=== PATIENT | female | born 1960 | race Caucasian/White ===

== ENCOUNTER 2021-12-05 00:23 | Day surgery (SDC) | payer BC, SELFPAY ==
[2021-11-17 11:56] VITALS: BMI 34.7
[2021-12-05 09:55] VITALS: BP 172/99; PULSE 104; RESP 18; TEMP 36.6; O2SAT 99; BMI 33.6
--- NOTE | 2021-12-05 09:57 | WPDGICN ---
Assessment and Plan Assessment and plan (1) Positive colorectal cancer screening using Cologuard test: Code(s): R19.5 - Other fecal abnormalities Status: Acute Assessment and Plan: Patient found to have positive Cologuard test suggest higher risk of colon polyps. Plan is for colonoscopy which will be performed today. Further recommendations will be given after endoscopy. GI Consult Note Consult date/time: 12/05/21 09:57 HPI: Neva Nguyễn is a 61 year old female Presents for screening colonoscopy. Patient recently found to have positive Cologuard test. She states that her weight appetite and bowel movements are normal. She denies abdominal pain. She has had no bleeding. Family history is noncontributory. Neoplasia screening colonoscopy will be performed today. Review of Systems Review of Systems: All systems reviewed & are unremarkable except as noted in HPI and below PMFSH Past Medical History Medical History Diabetes Onset 04/2014 History of gastroesophageal reflux (GERD) History of hypertension Hx of cyst of breast Hx of diabetic neuropathy 05/2015 Hx of osteoporosis 01/2012 IDDM (insulin dependent diabetes mellitus) BRAEDEN (obstructive sleep apnea) Surgical History Surgical History History of tonsillectomy (~1963) History of tubal ligation 1984 Hx of removal of cyst (~1997) breast Family History Family History Mother Hypertension Family history of hemochromatosis Father Hypertension Family history of gastrointestinal disorder Family history of diabetes mellitus in first degree relative Sibling Family history of malignant neoplasm of cervix Social History Social History Smoking status: Never smoker Second hand tobacco smoke exposure: No Smoking end date: 12/02/78 Alcohol intake: never Substance use: never Substance use type: does not use Living arrangements: with family Spiritual care concerns: No Meds Home Medications and Allergies Home Medications Medication Instructions Recorded Confirmed Type blood sugar diagnostic #300 strip 10/25/20 09/26/21 Rx lancets 33 gauge #300 ea 10/25/20 09/26/21 Rx fenofibrate 160 mg tablet 160 mg PO DAILY #90 tablet 09/12/21 11/17/21 Rx empagliflozin 25 mg-metformin ER 1 tablet PO DAILY #90 tablet 09/26/21 11/17/21 Rx 1,000 mg tablet,extended release 24hr omeprazole 40 mg capsule,delayed 40 mg PO DAILY #90 cap 09/26/21 11/17/21 Rx release simvastatin 10 mg tablet 10 mg PO DAILY #90 tablet 09/26/21 11/17/21 Rx insulin glargine 100 unit/mL (3 See Rx Instructions .ROUTE 11/08/21 11/17/21 Rx mL) subcutaneous pen .COMPLEX #90 ml pen needle, diabetic 32 gauge x #100 each 11/08/21 Rx / amlodipine 5 mg tablet 5 mg PO DAILY #90 tablet 12/04/21 Rx gabapentin 300 mg capsule 300 mg PO TID #270 cap 12/04/21 12/05/21 Rx lisinopril 10 mg tablet 10 mg PO DAILY #90 tablet 12/04/21 Rx metoprolol succinate 200 mg 200 mg PO DAILY #90 tablet 12/04/21 Rx tablet,extended release 24 hr raloxifene 60 mg tablet 60 mg PO DAILY #90 tablet 12/04/21 Rx Allergies Allergy/AdvReac Type Severity Reaction Status Date / Time No Known Allergies Allergy Unknown Verified 11/17/21 11:54 Vital Signs Vital Signs - 24 hr 12/05/21 09:55 Temperature 97.8 F Pulse Rate 104 H Respiratory Rate 18 Blood Pressure 172/99 H Pulse Oximetry 99 Exam Narrative: Physical exam reveals patient to be alert. Vital signs stable. HEENT exam is unremarkable. Patient is anicteric. Lungs are clear to auscultation and percussion. Heart is without murmur or extra sounds. Abdominal exam bowel sounds are present soft nontender with no hepatosplenomegaly. Digital external rectal exam is normal.
[2021-12-05] MEDS: LACTATED RINGERS 1,000 ML 150 ML IV CONT (10:05)
--- NOTE | 2021-12-05 10:10 | WPDANESEPPF ---
Anes - Initial Pre Proc Eval Procedure: Operation Date: 12/05/21 11:00 Proposed Procedures p Colonoscopy - Charles Ortiz MD Date/Time: 12/05/21 10:10 Surgeon: Charles Ortiz MD Pre Op Diagnosis: positive cologuard Patient Data Age: 61 Gender: F Height: 1.57 m Weight: 83.5 kg Last Vital Signs Temp 97.8 F 12/05/21 09:55 Pulse 104 H 12/05/21 09:55 Resp 18 12/05/21 09:55 BP 172/99 H 12/05/21 09:55 Pulse Ox 99 12/05/21 09:55 Allergies Allergy/AdvReac Type Severity Reaction Status Date / Time No Known Allergies Allergy Unknown Verified 11/17/21 11:54 Home Medications Medication Instructions Recorded Confirmed Type blood sugar diagnostic #300 strip 10/25/20 09/26/21 Rx lancets 33 gauge #300 ea 10/25/20 09/26/21 Rx fenofibrate 160 mg tablet 160 mg PO DAILY #90 tablet 09/12/21 11/17/21 Rx empagliflozin 25 mg-metformin ER 1 tablet PO DAILY #90 tablet 09/26/21 11/17/21 Rx 1,000 mg tablet,extended release 24hr omeprazole 40 mg capsule,delayed 40 mg PO DAILY #90 cap 09/26/21 11/17/21 Rx release simvastatin 10 mg tablet 10 mg PO DAILY #90 tablet 09/26/21 11/17/21 Rx insulin glargine 100 unit/mL (3 See Rx Instructions .ROUTE 11/08/21 11/17/21 Rx mL) subcutaneous pen .COMPLEX #90 ml pen needle, diabetic 32 gauge x #100 each 11/08/21 Rx 5/32 amlodipine 5 mg tablet 5 mg PO DAILY #90 tablet 12/04/21 Rx gabapentin 300 mg capsule 300 mg PO TID #270 cap 12/04/21 12/05/21 Rx lisinopril 10 mg tablet 10 mg PO DAILY #90 tablet 12/04/21 Rx metoprolol succinate 200 mg 200 mg PO DAILY #90 tablet 12/04/21 Rx tablet,extended release 24 hr raloxifene 60 mg tablet 60 mg PO DAILY #90 tablet 12/04/21 Rx Patient hx anesthesia problems: none Family hx anesthesia problems: none Results Review: All pre-operative results and documents have been reviewed as part of the pre-operative evaluation. [facility] Past Medical History Medical History Diabetes Onset 04/2014 History of gastroesophageal reflux (GERD) History of hypertension Hx of cyst of breast Hx of diabetic neuropathy 05/2015 Hx of osteoporosis 01/2012 IDDM (insulin dependent diabetes mellitus) BRAEDEN (obstructive sleep apnea) Surgical History Surgical History History of tonsillectomy (~1963) History of tubal ligation 1984 Hx of removal of cyst (~1997) breast Family History Family History Mother Hypertension Family history of hemochromatosis Father Hypertension Family history of gastrointestinal disorder Family history of diabetes mellitus in first degree relative Sibling Family history of malignant neoplasm of cervix Social History Social History Smoking status: Never smoker Second hand tobacco smoke exposure: No Smoking end date: 12/02/78 Alcohol intake: never Substance use: never Substance use type: does not use Living arrangements: with family Spiritual care concerns: No Anes - Eval Final PreProcedure Day of Procedure 12/05/21 10:10 Patient weight: obese Heart: regular rate and rhythm Lungs: clear to auscultation Airway: Mallampati scale class III Neurological: alert and oriented Last oral intake: >/= 8 hours ASA classification: III Emergent: no Anesthetic plan: proceed Anesthesia type and monitoring: general GIVS and standard monitoring Results Review: All pre-operative results and documents have been reviewed as part of the pre-operative evaluation. Informed Consent: The patient's anesthetic plan and its attendant risks and benefits were discussed with the patient/family/POA. Questions were solicited and answers provided to the satisfaction of the patient/family/POA.
[2021-12-05 10:21] LABS: Glucose Point of Care 139 mg/dl (65-105)
[2021-12-05 11:00] VITALS: BP 129/76; PULSE 111; RESP 25; O2SAT 98
[2021-12-05 11:10] VITALS: BP 150/90; PULSE 96; RESP 19; O2SAT 99
[2021-12-05 11:20] VITALS: BP 159/99; PULSE 83; RESP 17; O2SAT 100
[2021-12-05 11:26] LABS: Glucose Point of Care 109 mg/dl (65-105)
== END 2021-12-05 11:20 | disposition home or self-care (01) ==
PROVIDERS: PCP Family Medicine; Visit Provider Internal Medicine Gastroenterology
PROC: 0DJD8ZZ Inspection of Lower Intestinal Tract, Via Natural or Artificial Opening Endoscopic (ICD-10-PCS; CPT 45378; principal; 2021-12-05 11:00)
DX: R19.5 Other fecal abnormalities (principal); K64.8 Other hemorrhoids; K63.5 Polyp of colon; D12.2 Benign neoplasm of ascending colon; K62.1 Rectal polyp; Z79.4 Long term (current) use of insulin; E11.9 Type 2 diabetes mellitus without complications; I10 Essential (primary) hypertension; M81.0 Age-related osteoporosis without current pathological fracture; G47.33 Obstructive sleep apnea (adult) (pediatric); E11.40 Type 2 diabetes mellitus with diabetic neuropathy, unspecified; E66.9 Obesity, unspecified; Z68.33 Body mass index [BMI] 33.0-33.9, adult
CPT/HCPCS: 45385; 45381; 82948; 88305; J2704; J7120

== ENCOUNTER 2022-04-17 16:14 | Observation (INO) | payer BC, SELFPAY ==
--- NOTE | ~2022-04-17 | CT_ITS ---
EXAMINATION: CT abdomen pelvis wo con DATE: 04/17/2022 22:26 INDICATION: upper ABD pain, N/V/D TECHNIQUE: Computed tomography (CT) of the abdomen and pelvis was performed without intravenous contr ast. Automated exposure control and iterative reconstruction technique were employed. The dose-length product was 944.92 mGy-cm. COMPARISON: 05/19/2018. FINDINGS: Lower thorax: Mild coronary artery calcification. Liver: Normal. Biliary/Gallbladder: Gallbladder is normal. No bile duct dilation. Pancreas: No mass or duct dilation. Spleen: Normal. Adrenals:No mass. Kidneys: Nonobstructive right and inferior pole calcification. Right inferior pole simple cyst. GI tract: No small or large bowel dilation. Normal appendix. Mesentery/Peritoneum: No ascites, mass, or free air. Retroperitoneum: No mass. Atherosclerotic calcifications. Pelvis: Pelvic organs are within normal limits. Soft Tissues: Soft tissues and body wall unremarkable. Bones: No acute osseous finding. IMPRESSION: No acute abdominopelvic process. Reviewed, dictated and finalized at location K.
--- NOTE | ~2022-04-17 | XR_ITS ---
EXAMINATION: XR chest 2V 04/17/2022 16:38 INDICATION: Congestion, shortness of breath and cough PROCEDURE: 2 view chest COMPARISON: Comparison to multiple prior studies sequentially, with oldest reviewed study dated 09/02. FINDINGS: The lungs are clear. The cardiomediastinal silhouette is within normal limits. There are no pleural effusions. There is no pneumothorax suspected. IMPRESSION: 1: NO ACUTE CARDIOPULMONARY DISEASE. Reviewed, dictated and finalized at location A.
[2022-04-17 16:25] VITALS: BP 147/91; PULSE 70; RESP 18; TEMP 36.5; O2SAT 98
[2022-04-17 19:38] VITALS: BP 119/72; PULSE 75; RESP 22; O2SAT 98
--- NOTE | 2022-04-17 20:03 | ECG_ITS ---
Measurements Intervals [place] Rate: 68 P: 73 NV: 136 QRS: 23 QRSD: 90 T: 8 QT: 409 QTc: 438 Interpretive Statements SINUS RHYTHM NONSPECIFIC T-WAVE ABNORMALITY- INFERIOR LEADS BASELINE ARTIFACT- I, II, III, AVR, AVL BORDERLINE ECG Electronically Signed On 04-18-2022 6:28:10 CDT by Jan Thomas D.O.
--- NOTE | 2022-04-17 20:08 | ED.GENADULT ---
HPI - General Adult General Chief complaint: Shortness of Breath/Dyspnea <Radha Mcarthur PA-C - Last Filed: 04/18/22 00:15> Stated complaint: sob, chest congestion, nausea <REGINA Ramires Last Filed: 04/18/22 00:15> Time Seen by Provider: 04/17/22 19:41 <REGINA Ramires Last Filed: 04/18/22 00:15> Source: patient <REGINA Ramires Last Filed: 04/18/22 00:15> Mode of arrival: ambulatory <REGINA Ramires Last Filed: 04/18/22 00:15> Limitations: no limitations <REGINA Ramires Last Filed: 04/18/22 00:15> History of Present Illness HPI narrative: Patient is a 61-year-old female who presents the ED with multiple complaints. Patient states she began feeling unwell on . She reports having congestion, cough, nausea, vomiting, intermittent upper abdominal pain, foul smelling diarrhea, chills, anorexia, and subjective fever. No documented fever. No recent antibiotics, foreign travel, or bad food exposure that she is aware of. She also mentions having a yeast infection with red itchy inflammation in her vaginal region. No other urinary symptoms. She does have a history of diabetes and states her blood sugars have been slightly more elevated than usual since she has been sick. Blood sugar this morning was 137. No headache, runny nose, sore throat. No blood in her stool. Patient mentioned she had acute renal failure several years ago and was placed on dialysis. She is no longer receiving dialysis and does not follow with a pension consultant at this time. <REGINA Ramires Last Filed: 04/18/22 00:15> Related Data Home medications: Home Medications Medication Instructions Recorded Confirmed insulin glargine 100 unit/mL (3 80 unit SUBCUT DAILY ml 03/27/22 04/18/22 mL) subcutaneous pen simvastatin 10 mg tablet 10 mg PO DAILY tablet 03/27/22 04/18/22 <REGINA Ramires Last Filed: 04/18/22 00:15> Allergies/adverse reactions: Allergies Allergy/AdvReac Type Severity Reaction Status Date / Time No Known Allergies Allergy Unknown Verified 04/18/22 01:19 <Radha Mcarthur PA-C - Last Filed: 04/18/22 00:15> Review of Systems Review of Systems: CONSTITUTIONAL: Reports anorexia, chills, subjective fever. Denies sweats. ENT: Reports congestion. Denies rhinorrhea, sore throat. CARDIOVASCULAR: Denies chest pain, palpitations, or edema. RESPIRATORY: Reports cough. Denies dyspnea. GASTROINTESTINAL: Reports upper ABD pain, nausea, vomiting, diarrhea. Denies rectal bleeding. GENITOURINARY: Reports vaginal inflammation/irritation. Denies dysuria or hematuria. SKIN: Denies rash or itching. MUSCULOSKELETAL: Denies back pain. NEUROLOGIC: Denies headache, numbness, or weakness. <Radha Mcarthur PA-C - Last Filed: 04/18/22 00:15> All systems reviewed & are unremarkable except as noted in HPI and below <Radha Mcarthur PA-C - Last Filed: 04/18/22 00:15> [facility] Past Medical History Medical History: Medical History (Updated 04/17/22 @ 23:42 by Radha Mcarthur PA-C) History of acute renal failure History of gastroesophageal reflux (GERD) History of hypertension Hx of cyst of breast Hx of diabetic neuropathy 05/2015 Hx of osteoporosis 01/2012 IDDM (insulin dependent diabetes mellitus) BRAEDEN (obstructive sleep apnea) <Radha Mcarthur PA-C - Last Filed: 04/18/22 00:15> Surgical History Surgical History: Surgical History History of tonsillectomy (~1963) History of tubal ligation 1984 Hx of removal of cyst (~1997) breast <Radha Mcarthur PA-C - Last Filed: 04/18/22 00:15> Family History Family History: Family History Mother Hypertension Family history of hemochromatosis Father Hypertension Family history of gastrointestinal disorder Family history of diabetes mellitus in first degree relative Sibling Fami
[2022-04-17 20:24] LABS: Basophils Absolute Auto 0.1 K/mm3 (0.0-0.1); Basophils Percent Auto 0.4 % (0.2-1.2); Eosinophils Percent Auto 0.3 % (0-4.4); Hematocrit 52.2 % (37.0-47.0); Hemoglobin 16.7 g/dL (12.0-15.0); Immature Granulocyte Absolute 0.06 K/mm3 (0.00-0.031); Immature Granulocyte Percent A 0.4 % (0-0.5); Lymphocytes Absolute Auto 4.81 K/mm3 (0.9-3.2); Lymphocytes Percent Auto 35.2 % (18.3-44.2); Mean Corpuscular Hemoglobin 28.2 pg (26-34); Mean Corpuscular Volume 88.2 fl (80-100); Mean Platelet Volume 10.2 fl (7.4-10.4); Monocytes Absolute Auto 1.1 K/mm3 (0.1-0.6); Monocytes Percent Auto 7.7 % (2.6-8.5); Neutrophils Absolute Auto 7.7 K/mm3 (1.3-6.7); Platelet Count Result 367 k/mm3 (150-375); Red Blood Count 5.92 M/mm3 (4.2-5.4); White Blood Count 13.7 K/mm3 (4.5-10.0)
[2022-04-17] MEDS: SODIUM CHLORIDE 0.9% IV 1,000 ML 999 ML IV CONT ×3 (20:25→23:56)
[2022-04-17] MEDS: KETOROLAC 30 MG/ML VIAL (*BKC) IV PUSH (20:25)
[2022-04-17] MEDS: ONDANSETRON INJ 4 MG/2 ML VIAL IV PUSH (20:25)
[2022-04-17 20:34] LABS: Alanine Aminotransferase 27 U/L (6-35); Albumin Level 4.6 g/dL (3.5-5.1); Alkaline Phosphatase 83 U/L (38-126); Anion Gap 11 mmol/L (8-16); Aspartate Amino Transferase 41 U/L (14-36); Bilirubin,Total 0.6 mg/dL (0.2-1.3); Blood Urea Nitrogen 40 mg/dL (7-17); Calcium 9.5 mg/dL (8.4-10.2); Carbon Dioxide 22 mmol/L (22-30); Chloride 105 mmol/L (98-107); Estimated CRCL calculation 27 ml/min; Estimated Glomerular Filt Rate 25; Glucose 154 mg/dL (65-110); Potassium 3.5 mmol/L (3.4-5.0); Sodium 138 mmol/L (137-145)
[2022-04-17 20:50] VITALS: BP 124/63; PULSE 61; RESP 18; O2SAT 98
[2022-04-17 21:05] LABS: Influenza A QL RT-PCR Negative (Negative); Influenza B QL RT-PCR Negative (Negative); SARS-CoV-2 RNA PCR Negative
[2022-04-17 21:39] VITALS: BP 119/70; PULSE 66; RESP 18; O2SAT 98
[2022-04-17 22:25] LABS: Appearance Urine Clear (Clear); Bilirubin Urine 1+ (Negative); Blood Urine Negative (Negative); Color Urine Yellow (Yellow); Glucose Urine UA 3+ mg/dL (Negative); Ketones Urine Trace mg/dL (Negative); Leukocyte Esterase Ur Negative LEU/UL (Negative); Nitrate Urine Negative (Negative); Protein Urine 1+ mg/dL (Negative); Urobilinogen Urine 0.2 mg/dL (<2.0); pH Urine 5.5 (5.0-9.0)
[2022-04-17 22:27] VITALS: PULSE 65; RESP 18; O2SAT 97
[2022-04-17 22:29] VITALS: BP 95/74
[2022-04-17 22:29] LABS: Bacteria Urine Trace /hpf; Hyaline Casts Urine 15-19 /lpf; Mucus Urine Few /lpf; Squamous Epithelial Cell Urine Moderate /hpf (Few); WBC Urine 21-30 /hpf
[2022-04-17 22:41] LABS: Add Urine Microscopic? YES
[2022-04-17] MEDS: FLUCONAZOLE 150 MG TABLET PO (23:58)
[2022-04-18 00:12] LABS: Glucose Point of Care 120 mg/dl (65-105)
[2022-04-18 00:52] VITALS: BP 128/72; PULSE 72; RESP 16; O2SAT 98
--- NOTE | 2022-04-18 01:17 | ADMGEN ---
This patient, Neva Nguyễn, was admitted to [facility] Surg Room 302-01. Patient/family oriented to hospital policies and general routines including ID bracelet, bed and alarms, visiting hours, pain management, procedures, bathroom and other care routines, personal items, smoking policy, room service/diet, and visiting hours. Information on how to activate the Rapid Response Team has been discussed. Patient/Family are encouraged to report perceived risks to care and to ask questions if they do not understand what they are told or what they should do.
[2022-04-18 01:27] VITALS: BP 150/68; PULSE 77; RESP 18; TEMP 36.9; O2SAT 95
[2022-04-18 01:28] VITALS: BMI 35.2
[2022-04-18] MEDS: SODIUM CHLORIDE 0.9% IV 1,000 ML 100 ML IV CONT ×3 (01:30→22:45)
--- NOTE | 2022-04-18 03:24 | PCRCNOTE ---
Pt wears CPAP at home for BRAEDEN. When asked if she would like to use one while here, pt stated that she is probably going home today so doesn't need one at this time. Pt was advised to let her nurse know if she changes her mind or if she ends up staying longer and wishes to have one.
[2022-04-18 06:00] VITALS: BP 161/67; PULSE 62; RESP 18; TEMP 36.4; O2SAT 99
[2022-04-18 07:48] LABS: Glucose Point of Care 109 mg/dl (65-105)
[2022-04-18 08:16] LABS: Hematocrit 42.7 % (37.0-47.0); Hemoglobin 13.6 g/dL (12.0-15.0); Mean Corpuscular HGB Conc 31.9 g/dl (32-36); Mean Corpuscular Hemoglobin 28.5 pg (26-34); Mean Corpuscular Volume 89.3 fl (80-100); Mean Platelet Volume 9.9 fl (7.4-10.4); Platelet Count Result 237 k/mm3 (150-375); Red Blood Count 4.78 M/mm3 (4.2-5.4); Red Cell Distribution Width 13.6 % (11.5-14.5); White Blood Count 8.7 K/mm3 (4.5-10.0)
[2022-04-18 08:41] LABS: Anion Gap 7 mmol/L (8-16); Blood Urea Nitrogen 33 mg/dL (7-17); Calcium 7.8 mg/dL (8.4-10.2); Carbon Dioxide 23 mmol/L (22-30); Chloride 113 mmol/L (98-107); Estimated CRCL calculation 38 ml/min; Estimated Glomerular Filt Rate 38; Glucose 90 mg/dL (65-110); Potassium 3.2 mmol/L (3.4-5.0); Sodium 143 mmol/L (137-145)
[2022-04-18] MEDS: GABAPENTIN 300 MG CAPSULE PO ×3 (09:02→17:20)
[2022-04-18 09:03] VITALS: PULSE 72
[2022-04-18] MEDS: amLODIPine BESYLATE 5 MG TABLET PO (09:03)
[2022-04-18] MEDS: FENOFIBRATE 160 MG TABLET PO (09:03)
[2022-04-18] MEDS: METOPROLOL SUCCINATE EXT REL 100 MG TABCR 200 MG PO (09:03)
[2022-04-18] MEDS: lisinopriL 10 MG TABLET PO (09:03)
[2022-04-18] MEDS: PANTOPRAZOLE 40 MG TABLET PO ×2 (09:03→21:05)
[2022-04-18] MEDS: RALOXIFENE HCL (*CHEMO) 60 MG TABLET PO (09:03)
[2022-04-18] MEDS: SIMVASTATIN 10 MG TABLET PO (09:03)
[2022-04-18 11:24] LABS: Glucose Point of Care 113 mg/dl (65-105)
[2022-04-18 13:29] VITALS: BP 111/55; PULSE 68; RESP 18; TEMP 36.2; O2SAT 97
--- NOTE | 2022-04-18 13:57 | PM.IMHP ---
H&P: HPI History of Present Illness Date/Time: 04/18/22 13:57 Chief Complaint: Cough and congestion Narrative: Date of service: 04/18/2022 Neva Nguyễn is a 61-year-old female with a history of hypertension, untreated sleep apnea, type 2 diabetes mellitus, and remote history of acute kidney injury requiring temporary hemodialysis who presented to the emergency department on 04/17/2022 with several complaints and feeling generally unwell. She stated since 04/12 her and her have both been feeling sick. Her biggest complaint was sinus congestion and cough productive of olivares, thick mucus. She also had intermittent shortness of breath with activity. She had a few episodes of emesis and overall had no appetite and very poor p.o. intake. She endorsed fatigued and stated she was just feeling ?out of it. She had been feeling somewhat constipated and took a Dulcolax suppository and now is noting somewhat loose, foul-smelling stool. She denies diarrhea. She also developed yeast infection and stated she was ?itching like crazy. ? She had some improvement following Monistat suppository and now she only has a very minimal amount of itching that she believes has resolved after a 1 time dose of Diflucan in the ED. she denies dysuria or hematuria but does endorse recent increased urinary frequency. She reports she had 2 negative at home COVID tests. Denies fever or chills. She denies dizziness, lightheadedness, myalgias, arthralgias. Reports normal sense of smell and taste. Does endorse feeling slightly weak. This morning she was able to tolerate eating most of her breakfast. On presentation to the ED, she was found to have acute kidney injury and urinalysis was concerning for UTI, CXR showed cardiopulmonary disease, and CT of the abdomen/pelvis showed no acute abdominal pelvic process. She is being admitted to the hospitalist service for observation. Supervising physician for this history and physical is Dr. Meek Barone. Review of Systems Review of Systems: All systems reviewed & are unremarkable except as noted in HPI and below PMFSH Past Medical History Medical History (Updated 04/18/22 @ 14:19 by Casandra Fox PA-C) Essential (primary) hypertension Onset 07/03/17 History of acute renal failure 2014. Required temporary dialysis History of gastroesophageal reflux (GERD) History of hypertension Hx of cyst of breast Benign Hx of diabetic neuropathy 05/2015 Hx of osteoporosis 01/2012 IDDM (insulin dependent diabetes mellitus) BRAEDEN (obstructive sleep apnea) Untreated Surgical History Surgical History History of tonsillectomy (~1963) History of tubal ligation 1985 Hx of removal of cyst (~1997) breast Family History Family History Mother Hypertension Family history of hemochromatosis Father Hypertension Family history of gastrointestinal disorder Family history of diabetes mellitus in first degree relative Sibling Family history of malignant neoplasm of cervix Social History Social History (Updated 04/18/22 @ 14:10 by Casandra Fox PA-C) Social History: Ms. Nguyễn lives at home with her . She is independent in her daily activities. She works for [employer]. Her PCP is Dr. Bermudez. She designates her , Nikhil, as her surrogate decision maker and she would like to be a full code. Smoking packs per day: 0.25 Smoking cigarettes per day: 5.0 Years smoked: 5 Smoking pack-years: 1.25 Smoking status: Former smoker Second hand tobacco smoke exposure: No Alcohol intake: never Substance use: never Substance use type: does not use Spiritual care concerns: No Meds Home Medications and Allergies Home Medications Medication Instructions Recorded Confirmed Type blood sugar diagnostic #300 strip 10/25/20 04/18/22 Rx lancets 33 gauge #300 ea 10/25/20
[2022-04-18] MEDS: POTASSIUM CHLORIDE 20 MEQ TABLET PO (14:42)
[2022-04-18 16:07] LABS: Glucose Point of Care 118 mg/dl (65-105)
[2022-04-18] MEDS: guaiFENesin 12 HR 600 MG TABCR PO (21:05)
[2022-04-18] MEDS: INSULIN GLARGINE (*BKC) 100 UNITS/ML 40 UNITS SUB-Q (21:13)
[2022-04-18 21:23] LABS: Glucose Point of Care 138 mg/dl (65-105)
[2022-04-18 21:49] VITALS: BP 140/68; PULSE 58; RESP 18; TEMP 36.6; O2SAT 99
[2022-04-19] MEDS: guaiFENesin 12 HR 600 MG TABCR PO (05:49)
[2022-04-19 06:00] VITALS: BP 156/84; PULSE 62; RESP 14; TEMP 36.1; O2SAT 100
[2022-04-19 06:50] LABS: Hematocrit 43.4 % (37.0-47.0); Hemoglobin 13.4 g/dL (12.0-15.0); Mean Corpuscular HGB Conc 30.9 g/dl (32-36); Mean Corpuscular Hemoglobin 28.2 pg (26-34); Mean Corpuscular Volume 91.4 fl (80-100); Mean Platelet Volume 10.4 fl (7.4-10.4); Platelet Count Result 224 k/mm3 (150-375); Red Blood Count 4.75 M/mm3 (4.2-5.4); Red Cell Distribution Width 13.5 % (11.5-14.5); White Blood Count 7.7 K/mm3 (4.5-10.0)
[2022-04-19 07:11] LABS: Anion Gap 6 mmol/L (8-16); Blood Urea Nitrogen 16 mg/dL (7-17); Calcium 7.8 mg/dL (8.4-10.2); Carbon Dioxide 21 mmol/L (22-30); Chloride 112 mmol/L (98-107); Estimated CRCL calculation 58 ml/min; Estimated Glomerular Filt Rate > 60; Glucose 73 mg/dL (65-110); Magnesium 2.2 mg/dL (1.6-2.3); Potassium 3.3 mmol/L (3.4-5.0); Sodium 139 mmol/L (137-145)
[2022-04-19 07:33] LABS: Glucose Point of Care 69 mg/dl (65-105)
[2022-04-19] MEDS: GABAPENTIN 300 MG CAPSULE PO ×2 (08:48→12:41)
[2022-04-19 08:49] VITALS: PULSE 72
[2022-04-19] MEDS: METOPROLOL SUCCINATE EXT REL 100 MG TABCR 200 MG PO (08:49)
[2022-04-19] MEDS: FENOFIBRATE 160 MG TABLET PO (08:49)
[2022-04-19] MEDS: RALOXIFENE HCL (*CHEMO) 60 MG TABLET PO (08:49)
[2022-04-19] MEDS: SIMVASTATIN 10 MG TABLET PO (08:49)
[2022-04-19] MEDS: PANTOPRAZOLE 40 MG TABLET PO (08:50)
[2022-04-19] MEDS: amLODIPine BESYLATE 5 MG TABLET PO (08:50)
[2022-04-19] MEDS: POTASSIUM CHLORIDE 20 MEQ TABLET PO (11:01)
[2022-04-19 11:45] LABS: Glucose Point of Care 148 mg/dl (65-105)
--- NOTE | 2022-04-19 12:14 | PM.DS ---
DS: Admitting Diagnosis Discharge Date 04/19/2022 Admitting Diagnosis Acute kidney injury DS: Discharge Diagnosis Discharge Diagnosis (1) Acute kidney injury: Code(s): N17.9 - Acute kidney failure, unspecified Status: Acute Assessment and Plan: Likely prerenal secondary to volume depletion from decreased p.o. intake. Creatinine 2.0 at presentation Improved with rehydration back to baseline Creatinine 0.9 at time of discharge Patient maintaining adequate oral intake Lisinopril and metformin held during admission in light of BETH but resumed on discharge following resolution (2) Urinary tract infection: Qualifiers: Hematuria presence: with hematuria Urinary tract infection type: acute cystitis Qualified Code(s): N30.01 - Acute cystitis with hematuria Code(s): N39.0 - Urinary tract infection, site not specified Status: Ruled-out Assessment and Plan: Ruled out. Urinalysis abnormal on presentation. Patient did complain of urinary symptoms which may have been related to vaginal yeast infection. She was initiated on IV ceftriaxone which was discontinued following results of urine culture which revealed no growth. No further treatment required. (3) IDDM (insulin dependent diabetes mellitus): Code(s): E11.9 - Type 2 diabetes mellitus without complications; Z79.4 - shelter (current) use of insulin Status: Acute Assessment and Plan: A1c is 7.8. Manage during admission with Accu-Cheks, sliding scale insulin, hypoglycemic protocol. Home Lantus was decreased by 50% to 40 units qHS and patient had low a.m. fasting blood sugar of 69 following this dose. Patient reports episodes of hypoglycemia at home. Lantus decreased to 30 units qHS and she was instructed to monitor blood sugars at home 3 times per day. She will follow-up with her PCP in 1 week for glucose monitoring and insulin adjustment as needed. Home empagliflozin-metformin was held during admission but resumed on discharge. (4) Essential (primary) hypertension: Code(s): I10 - Essential (primary) hypertension Status: Acute Assessment and Plan: Blood pressure reviewed and remained stable. Lisinopril resumed. Continue metoprolol (5) Yeast infection: Code(s): B37.9 - Candidiasis, unspecified Status: Resolved Assessment and Plan: Symptoms resolved following Monistat suppository. Patient received 150 mg Diflucan 1 time dose on presentation (6) Hypokalemia: Code(s): E87.6 - Hypokalemia Status: Acute Assessment and Plan: Potassium slightly decreased secondary to poor oral intake. Potassium was monitored and replaced. Anticipate full resolution as patient's is now tolerating diet. DS: Summary Hospital Course Hospital Course: Date of admission: 04/17/2022 Date of discharge: 04/19/2022 Neva Nguyễn is a 61-year-old female with a history of hypertension, untreated sleep apnea, type 2 diabetes mellitus, and remote history of acute kidney injury requiring temporary hemodialysis who presented to the emergency department on 04/17/2022 with several complaints and feeling generally unwell. On presentation to the ED, she was found to have acute kidney injury and she was admitted to the hospitalist service for further evaluation and management. Please see above for further details. Her acute kidney injury resolved with fluid rehydration. She was feeling significantly improved and was eager for discharge home. Given her overall improvement, she was determined to no longer require inpatient care and was discharged in hemodynamically stable condition on 04/19/2022. She will follow-up with her PCP in 1 week for further monitoring. We discussed worrisome signs and symptoms for which to return and she was educated on her medications. All questions were answered and she was comfortable with discharge plans. Time Spent with Patient Time attest
== END 2022-04-19 13:00 | disposition home or self-care (01) ==
LOC: ANHED 23:50 → ANH3MEDSUR 04-18 00:33
PROVIDERS: Physician Assistant; Admitting Provider Internal Medicine; Emergency Provider General Practice; PCP Family Medicine; Visit Provider Internal Medicine
DX: N17.9 Acute kidney failure, unspecified (principal); R06.02 Shortness of breath; K21.9 Gastro-esophageal reflux disease without esophagitis; I10 Essential (primary) hypertension; E11.9 Type 2 diabetes mellitus without complications; Z79.4 Long term (current) use of insulin; G47.33 Obstructive sleep apnea (adult) (pediatric); B37.9 Candidiasis, unspecified; E87.6 Hypokalemia; R35.0 Frequency of micturition; Z20.822 Contact with and (suspected) exposure to COVID-19
CPT/HCPCS: 36415; 71046; 74176; 80048; 80053; 81001; 82948; 83735; 84484; 85025; 85027; 87086; 87502; 93005; 96361; 96365; 96375; 99285; A9270; C9803; G0378; J0696; J1650; J1815; J1885; J2405; J7030; U0003; U0005

== ENCOUNTER 2022-08-09 09:30 | Observation (INO) | payer BC, SELFPAY ==
[2022-08-09] VITALS (15 sets, daily range): BP systolic 130–211; BP diastolic 67–118; PULSE 88–124; RESP 14–25; TEMP 36.8–37.2; O2SAT 96–100; BMI 34.1
--- NOTE | ~2022-08-09 | CT_ITS ---
EXAMINATION: CT abdomen pelvis w con DATE: 08/09/2022 10:37 INDICATION: Nausea and vomiting. TECHNIQUE: Computed tomography (CT) of the abdomen and pelvis was performed with 100 mL Omnipaque 350 intravenous contrast. Automated exposure control and iterative reconstruction technique were employe d. The dose-length product was 936.98 mGy-cm. COMPARISON: CT abdomen and pelvis 04/17/2022 FINDINGS: The visualized portions of the lung bases demonstrate mild atelectasis. No pleural effusion . The heart size is normal. No pericardial effusion. There is diffuse hepatic steatosis. The gallblad anastasiya, spleen, pancreas, and adrenal glands are normal. There are cysts in the kidneys measuring up to 13 mm on the right. There is a 2 mm stone in right kidney. There are no dilated loops of bowel. The a ppendix is normal. There are no pathologically enlarged lymph nodes. There is no free intraperitoneal fluid. There is mild lumbar spondylosis. IMPRESSION: 1. Diffuse hepatic steatosis. Reviewed, dictated and finalized at location A.
--- NOTE | 2022-08-09 09:47 | ED.NAVMDI ---
HPI - Nausea/Vomiting/Diarrhea General Chief complaint: Nausea/Vomiting/Diarrhea Stated complaint: I'm dehydrated Time Seen by Provider: 08/09/22 09:34 History of Present Illness HPI Narrative: 62-year-old female history of diabetes and hypertension presents emergency room stating I am dehydrated . Patient states that she has been experiencing nausea and vomiting since yesterday. It is accompanied with abdominal cramping. Reports the cramping is worse prior to the vomiting. Reports multiple episodes of nonbilious nonbloody vomiting. No diarrhea. Denies dysuria. Denies fever. Related Data Home Medications Medication Instructions Recorded Confirmed simvastatin 10 mg tablet 10 mg PO DAILY 03/27/22 08/02/22 insulin glargine 100 unit/mL (3 50 unit subcut DAILY 05/29/22 08/02/22 mL) subcutaneous pen (Lantus Solostar U-100 Insulin) Allergies Allergy/AdvReac Type Severity Reaction Status Date / Time No Known Allergies Allergy Unknown Verified 08/09/22 09:38 Review of Systems Review of Systems: CONSTITUTIONAL: Denies fever, chills, or sweats. EYES: Denies visual changes, redness, or discharge. ENT: Denies rhinorrhea, congestion, sore throat, or otalgia. CARDIOVASCULAR: Denies chest pain, palpitations, or edema. RESPIRATORY: Denies cough or dyspnea. GASTROINTESTINAL: Reports nausea and vomiting GENITOURINARY: Denies dysuria or hematuria. SKIN: Denies rash or itching. MUSCULOSKELETAL: Denies back pain, joint pain, or myalgia. NEUROLOGIC: Denies headache, numbness, dizziness, or weakness. PSYCHIATRIC: Denies anxiety or depression. [facility] Past Medical History Medical History Essential (primary) hypertension Onset 07/03/17 History of acute renal failure 2014. Required temporary dialysis History of gastroesophageal reflux (GERD) History of hypertension Hx of cyst of breast Benign Hx of diabetic neuropathy 05/2015 Hx of osteoporosis 01/2012 IDDM (insulin dependent diabetes mellitus) BRAEDEN (obstructive sleep apnea) Untreated Surgical History Surgical History History of tonsillectomy (~1963) History of tubal ligation 1985 Hx of removal of cyst (~1997) breast Family History Family History Mother Hypertension Family history of hemochromatosis Father Hypertension Family history of gastrointestinal disorder Family history of diabetes mellitus in first degree relative Sibling Family history of malignant neoplasm of cervix Social History Social History Social History: Ms. Nguyễn lives at home with her . She is independent in her daily activities. She works for [employer]. Her PCP is Dr. Bermudez. She designates her , Nikhil, as her surrogate decision maker and she would like to be a full code. Smoking packs per day: 0.25 Smoking cigarettes per day: 5.0 Years smoked: 5 Smoking pack-years: 1.25 Smoking status: Never smoker Second hand tobacco smoke exposure: No Alcohol intake: never Substance use: never Substance use type: does not use Spiritual care concerns: No Exam Narrative: GENERAL: Well-appearing, well-nourished, no physical limitations, and in no acute distress. HEAD: Normocephalic, atraumatic. EYES: Conjunctivae normal, PERRLA and EOMI. ENT: External nose normal, Nares clear, no rhinorrhea or epistaxis. Mucous membranes dry. NECK: Supple. No carotid bruits or JVD CHEST: Clear to auscultation. No respiratory distress. No wheezes rales or rhonchi. No tenderness. HEART: Regular rate and rhythm. No murmur heard. Normal peripheral pulses. ABDOMEN: Soft, nontender, nondistended, normal active bowel sounds. EXTREMITIES: Normal range of motion. No edema. No clubbing or cyanosis SKIN: Warm, dry, no rash. No noted wounds NEURO: No focal deficit
[2022-08-09] MEDS: ONDANSETRON INJ 4 MG/2 ML VIAL IV PUSH ×3 (09:49→17:24)
[2022-08-09] MEDS: SODIUM CHLORIDE 0.9% IV 1,000 ML 999 ML IV CONT ×2 (09:49→10:41)
[2022-08-09 09:58] LABS: Basophils Absolute Auto 0.1 K/mm3 (0.0-0.1); Basophils Percent Auto 0.3 % (0.2-1.2); Hematocrit 52.8 % (37.0-47.0); Hemoglobin 17.2 g/dL (12.0-15.0); Immature Granulocyte Absolute 0.11 K/mm3 (0.00-0.031); Immature Granulocyte Percent A 0.5 % (0-0.5); Lymphocytes Absolute Auto 1.69 K/mm3 (0.9-3.2); Lymphocytes Percent Auto 7.4 % (18.3-44.2); Mean Corpuscular HGB Conc 32.6 g/dl (32-36); Mean Corpuscular Hemoglobin 28.8 pg (26-34); Mean Corpuscular Volume 88.4 fl (80-100); Mean Platelet Volume 10.7 fl (7.4-10.4); Monocytes Absolute Auto 0.7 K/mm3 (0.1-0.6); Monocytes Percent Auto 2.9 % (2.6-8.5); Neutrophils Absolute Auto 20.3 K/mm3 (1.3-6.7); Neutrophils Percent Auto 88.9 % (45.5-73.1); Platelet Count Result 429 k/mm3 (150-375); Red Blood Count 5.97 M/mm3 (4.2-5.4); Red Cell Distribution Width 14.1 % (11.5-14.5); White Blood Count 22.8 K/mm3 (4.5-10.0)
[2022-08-09 10:08] LABS: Alanine Aminotransferase 31 U/L (6-35); Albumin Level 5.2 g/dL (3.5-5.1); Alkaline Phosphatase 97 U/L (38-126); Anion Gap 23 mmol/L (8-16); Aspartate Amino Transferase 37 U/L (14-36); Bilirubin,Total 0.8 mg/dL (0.2-1.3); Blood Urea Nitrogen 22 mg/dL (7-17); Calcium 10.4 mg/dL (8.4-10.2); Carbon Dioxide 12 mmol/L (22-30); Chloride 105 mmol/L (98-107); Estimated CRCL calculation 43 ml/min; Estimated Glomerular Filt Rate 45; Glucose 378 mg/dL (65-110); Potassium 3.8 mmol/L (3.4-5.0); Sodium 140 mmol/L (137-145)
[2022-08-09 10:43] LABS: Appearance Urine Clear (Clear); Bilirubin Urine 2+ (Negative); Blood Urine 2+ (Negative); Color Urine Yellow (Yellow); Glucose Urine UA 3+ mg/dL (Negative); Ketones Urine 4+ mg/dL (Negative); Leukocyte Esterase Ur Negative LEU/UL (Negative); Nitrate Urine Negative (Negative); Protein Urine 2+ mg/dL (Negative); Urobilinogen Urine 0.2 mg/dL (<2.0)
[2022-08-09 10:53] LABS: Add Urine Microscopic? YES
[2022-08-09 10:54] LABS: Squamous Epithelial Cell Urine Many /hpf (Few); Transitional Epi Cells Urine Rare /hpf
[2022-08-09 10:55] LABS: Bacteria Urine 1+ /hpf
[2022-08-09 11:15] LABS: Lactic Acid Reflex 4.4 mmol/L (0.7-2.0)
[2022-08-09 11:47] LABS: Alveolar/Arterial O2 Gradient 23.1 mmHg; Base Excess ABG -7.2 mEq/l (+/-2.0); Fractional Inspired Oxygen 21 %; HCO3 ABG 16.4 mEq/l (22.0-26.0); Oxygen Content ABG 21.3 %vol (16.0-22.0); Oxyhemoglobin 96.3 % THb (90.0-100.0); PCO2 ABG 28.9 mmHg (35.0-45.0); PO2 FiO2 Ratio Arterial Blood 4.38 %; Total Hemoglobin 15.7 g/dL (12.0-18.0); pH ABG 7.372 (7.350-7.450)
[2022-08-09 11:48] LABS: Device ROOM AIR; Modified Allen's Test Pass; Site Drawn RIGHT RADIAL
--- NOTE | 2022-08-09 13:02 | PM.IMHP ---
H&P: HPI History of Present Illness Date/Time: 08/09/22 13:02 Chief Complaint: Nausea vomiting diarrhea Narrative: This is a 62-year-old female patient who has a history of insulin-dependent diabetes and hypertension. The patient give level nausea vomiting since yesterday. The patient also developed abdominal cramping. 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 The patient has had multiple episodes of nonbilious nonbloody emesis today. She has not had any fever or any diarrhea. The patient's cramping is worse with vomiting. She also has lost her voice from vomiting so much. The patient stated that she has been taking her medication as prescribed. She also stated that she has never been in DKA. Her white count was 22.8 her H&H is 17.2 and 52.8. On her ABGs her pH was normal and her CO2 was 28.9. Her creatinine was 1.2 BUN 22 anion gap is 23. The patient was given 2 L of IV normal saline bolus. Her lactic was initially 4.4 and came down to 2.5. A1c was noted to be 7.7. Her blood sugar is 208 now. Patient's initial beta hydroxybutyrate acetoacetate was initially 3.9 and is now 2.73. Her anion gap came down from 23 and is now 16. Urine had 3+ glucose 2+ protein 4+ ketones and 2+ blood. She had many squamous cells which is a contaminant. The patient was given Zofran in the emergency room, and IV fluids. The patient is being admitted to ICU for DKA as observation on the date of service of 08/09/2022. Review of Systems Review of Systems: See HPI All systems reviewed & are unremarkable except as noted in HPI and below Constitutional: Constitutional: Reports as per HPI and Reports no additional constitutional complaints Eyes: Eyes: Reports as per HPI and Reports no additional eye complaints ENT: Reports system reviewed and no additional complaints, except as documented and Reports Normal hearing present Cardiovascular: Cardiovascular: Reports no additional cardiovascular complaints Respiratory: Respiratory: Reports no additional respiratory complaints and Reports no additional respiratory complaints Gastrointestinal: Gastrointestinal: Reports as per HPI and Reports no additional gastrointestinal complaints Musculoskeletal: Musculoskeletal: Reports no additional musculoskeletal complaints Integumentary/Breasts: Skin/Breast: Reports system reviewed and no additional complaints, except as docu and Reports as per HPI Neurologic: Reports system reviewed and no additional complaints, except as documented, Reports as per HPI and Reports Normal hearing present Psychiatric: Psychiatric: Reports no additional psychiatric complaints and Reports as per HPI Endocrine: Endocrine: Reports no additional endocrine complaints Hematologic/Lymphatic: Hematologic/Lymphatic: Reports no additional hematologic/lymphatic complaints Allergic/Immunologic: Allergic/Immunologic: Reports no additional allergic/immunologic complaints PMFSH Past Medical History Medical History Essential (primary) hypertension Onset 07/03/17 History of acute renal failure 2014. Required temporary dialysis History of gastroesophageal reflux (GERD) History of hypertension Hx of cyst of breast Benign Hx of diabetic neuropathy 05/2015 Hx of osteoporosis 01/2012 Hyperlipidemia IDDM (insulin dependent diabetes mellitus) BRAEDEN (obstructive sleep apnea) Untreated Surgical History Surgical History History of tonsillectomy (~1963) History of tubal ligation 1984 Hx of removal of cyst (~1997) breast Family History Family History Mother Hypertension Family history of hemochromatosis Father Hypertension Family history of gastrointestinal disorder Family history of diabetes mellitus in first degree relative Sibling Family history of malignant n
[2022-08-09] MEDS: FLUCONAZOLE 150 MG TABLET PO (13:32)
[2022-08-09] MEDS: SODIUM CHLORIDE 0.9% IV 1,000 ML 125 ML IV CONT (13:32)
[2022-08-09 13:36] LABS: Beta-Hydroxybutyrate/Acetoacetate 3.99 mmol/L (0.02-0.27)
[2022-08-09 14:02] LABS: Reflex Lactic Acid Yes or No Add Lactic
[2022-08-09 14:11] LABS: Anion Gap 17 mmol/L (8-16); Blood Urea Nitrogen 19 mg/dL (7-17); Calcium 9.3 mg/dL (8.4-10.2); Carbon Dioxide 19 mmol/L (22-30); Chloride 109 mmol/L (98-107); Estimated CRCL calculation 56 ml/min; Estimated Glomerular Filt Rate > 60; Glucose 218 mg/dL (65-110); Potassium 3.9 mmol/L (3.4-5.0); Sodium 145 mmol/L (137-145)
[2022-08-09 14:42] LABS: Lactic Acid 2.5 mmol/L (0.7-2.0)
[2022-08-09 14:43] LABS: Anion Gap 16 mmol/L (8-16); Blood Urea Nitrogen 18 mg/dL (7-17); Calcium 9.4 mg/dL (8.4-10.2); Carbon Dioxide 19 mmol/L (22-30); Chloride 110 mmol/L (98-107); Estimated CRCL calculation 56 ml/min; Estimated Glomerular Filt Rate > 60; Glucose 213 mg/dL (65-110); Magnesium 1.8 mg/dL (1.6-2.3); Phosphorus 1.9 mg/dL (2.5-4.5); Potassium 4.2 mmol/L (3.4-5.0); Sodium 145 mmol/L (137-145)
--- NOTE | 2022-08-09 14:47 | PC.NURSE ---
Evita called to clarify orders placed. VO to not given D50, BS <200 hold IVP 9units insulin, hold on Insulin drip until labs resulted or pt to ICU.
[2022-08-09 14:51] LABS: Beta-Hydroxybutyrate/Acetoacetate 2.73 mmol/L (0.02-0.27)
[2022-08-09 15:04] LABS: Hemoglobin A1C 7.7 % (<5.7)
[2022-08-09 15:17] LABS: Glucose Point of Care 208 mg/dl (65-105)
--- NOTE | 2022-08-09 15:44 | ADMGEN ---
This patient, Neva Nguyễn, was admitted to Intensive Care Unit-6. Patient/family oriented to hospital policies and general routines including ID bracelet, bed and alarms, visiting hours, pain management, procedures, bathroom and other care routines, personal items, smoking policy, room service/diet, and visiting hours. Information on how to activate the Rapid Response Team has been discussed. Patient/Family are encouraged to report perceived risks to care and to ask questions if they do not understand what they are told or what they should do.
[2022-08-09] MEDS: KCL 20 MEQ/D5/0.45% SOD CHL 1,000 ML 150 ML IV CONT ×2 (15:56→22:31)
[2022-08-09] MEDS: INSULIN HUMAN REGULAR (*BKC) 100 UNITS in SODIUM CHLORIDE 0.9% IV 99 ML IV CONT (15:57)
[2022-08-09 16:00] LABS: Glucose Point of Care 201 mg/dl (65-105)
[2022-08-09] MEDS: hydrALAZINE HCL 20 MG/ML VIAL 10 MG IV PUSH (16:12)
[2022-08-09 17:19] LABS: Glucose Point of Care 199 mg/dl (65-105)
[2022-08-09 18:07] LABS: Glucose Point of Care 196 mg/dl (65-105)
[2022-08-09] MEDS: METOPROLOL TARTRATE INJ 5 MG/5 ML VIAL IV PUSH ×2 (18:20→23:39)
[2022-08-09 18:30] LABS: Anion Gap 12 mmol/L (8-16); Blood Urea Nitrogen 17 mg/dL (7-17); Carbon Dioxide 15 mmol/L (22-30); Chloride 115 mmol/L (98-107); Estimated CRCL calculation 62 ml/min; Estimated Glomerular Filt Rate > 60; Glucose 182 mg/dL (65-110); Potassium 3.4 mmol/L (3.4-5.0); Sodium 142 mmol/L (137-145)
[2022-08-09] MEDS: METOCLOPRAMIDE HCL INJ 10 MG/2 ML VIAL 5 MG IV PUSH (18:48)
[2022-08-09 19:11] LABS: Glucose Point of Care 149 mg/dl (65-105)
[2022-08-09] MEDS: FAMOTIDINE 20 MG/2 ML VIAL IV PUSH (20:15)
[2022-08-09] MEDS: MICONAZOLE NITRATE 2% VAGINAL CREAM 45 GM TUBE 1 APPFUL VAGINAL (20:16)
[2022-08-09 20:25] LABS: Glucose Point of Care 141 mg/dl (65-105)
[2022-08-09 21:10] LABS: Glucose Point of Care 129 mg/dl (65-105)
[2022-08-09 22:11] LABS: Glucose Point of Care 128 mg/dl (65-105)
[2022-08-09 22:57] LABS: Anion Gap 14 mmol/L (8-16); Blood Urea Nitrogen 16 mg/dL (7-17); Calcium 8.7 mg/dL (8.4-10.2); Carbon Dioxide 20 mmol/L (22-30); Chloride 110 mmol/L (98-107); Estimated CRCL calculation 62 ml/min; Estimated Glomerular Filt Rate > 60; Glucose 123 mg/dL (65-110); Potassium 3.2 mmol/L (3.4-5.0); Sodium 144 mmol/L (137-145)
[2022-08-09] MEDS: KCL 20 MEQ/SW 100 ML 100 ML 50 MEQ IVPB (23:39)
[2022-08-09 23:49] LABS: Glucose Point of Care 156 mg/dl (65-105)
[2022-08-10] VITALS (12 sets, daily range): BP systolic 131–179; BP diastolic 64–90; PULSE 75–97; RESP 16–20; TEMP 36.7–36.9; O2SAT 96–99; BMI 34.4
[2022-08-10 00:20] LABS: Glucose Point of Care 150 mg/dl (65-105)
[2022-08-10 01:12] LABS: Glucose Point of Care 141 mg/dl (65-105)
[2022-08-10 01:53] LABS: SARS-CoV-2 RNA PCR Negative
[2022-08-10 02:02] LABS: Glucose Point of Care 119 mg/dl (65-105)
[2022-08-10] MEDS: hydrALAZINE HCL 20 MG/ML VIAL 10 MG IV PUSH (02:24)
[2022-08-10] MEDS: ONDANSETRON INJ 4 MG/2 ML VIAL IV PUSH ×2 (02:25→08:38)
[2022-08-10 02:56] LABS: Anion Gap 8 mmol/L (8-16); Blood Urea Nitrogen 16 mg/dL (7-17); Calcium 8.9 mg/dL (8.4-10.2); Carbon Dioxide 23 mmol/L (22-30); Chloride 113 mmol/L (98-107); Estimated CRCL calculation 62 ml/min; Estimated Glomerular Filt Rate > 60; Glucose 116 mg/dL (65-110); Magnesium 1.9 mg/dL (1.6-2.3); Potassium 3.6 mmol/L (3.4-5.0); Sodium 144 mmol/L (137-145)
[2022-08-10 03:17] LABS: Glucose Point of Care 126 mg/dl (65-105)
[2022-08-10 04:56] LABS: Glucose Point of Care 141 mg/dl (65-105)
[2022-08-10] MEDS: KCL 20 MEQ/SW 100 ML 100 ML 50 MEQ IVPB (05:36)
[2022-08-10] MEDS: KCL 20 MEQ/D5/0.45% SOD CHL 1,000 ML 150 ML IV CONT (05:36)
[2022-08-10 05:43] LABS: Glucose Point of Care 138 mg/dl (65-105)
[2022-08-10 05:59] LABS: Basophils Absolute Auto 0.1 K/mm3 (0.0-0.1); Basophils Percent Auto 0.4 % (0.2-1.2); Hematocrit 44.7 % (37.0-47.0); Hemoglobin 14.6 g/dL (12.0-15.0); Immature Granulocyte Absolute 0.11 K/mm3 (0.00-0.031); Immature Granulocyte Percent A 0.6 % (0-0.5); Lymphocytes Absolute Auto 3.09 K/mm3 (0.9-3.2); Lymphocytes Percent Auto 18.1 % (18.3-44.2); Mean Corpuscular HGB Conc 32.7 g/dl (32-36); Mean Corpuscular Hemoglobin 28.9 pg (26-34); Mean Corpuscular Volume 88.3 fl (80-100); Monocytes Absolute Auto 0.9 K/mm3 (0.1-0.6); Monocytes Percent Auto 5.5 % (2.6-8.5); Neutrophils Absolute Auto 12.9 K/mm3 (1.3-6.7); Neutrophils Percent Auto 75.4 % (45.5-73.1); Platelet Count Result 275 k/mm3 (150-375); Red Blood Count 5.06 M/mm3 (4.2-5.4); Red Cell Distribution Width 14.3 % (11.5-14.5); White Blood Count 17.1 K/mm3 (4.5-10.0)
[2022-08-10 06:09] LABS: Lactic Acid Reflex 1.6 mmol/L (0.7-2.0)
[2022-08-10 06:12] LABS: Anion Gap 10 mmol/L (8-16); Blood Urea Nitrogen 13 mg/dL (7-17); CRP 0.6 mg/dL (<1.0); Carbon Dioxide 20 mmol/L (22-30); Chloride 111 mmol/L (98-107); Estimated CRCL calculation 71 ml/min; Estimated Glomerular Filt Rate > 60; Glucose 135 mg/dL (65-110); Potassium 3.3 mmol/L (3.4-5.0); Sodium 141 mmol/L (137-145)
[2022-08-10 06:35] LABS: Glucose Point of Care 158 mg/dl (65-105)
[2022-08-10 07:30] LABS: Glucose Point of Care 143 mg/dl (65-105)
[2022-08-10] MEDS: INSULIN GLARGINE (*BKC) 100 UNITS/ML 50 UNITS SUB-Q (08:25)
[2022-08-10] MEDS: POTASSIUM CHLORIDE 20 MEQ TABLET 40 MEQ PO (08:26)
[2022-08-10] MEDS: ENOXAPARIN 40 MG/0.4 ML SYRINGE SUB-Q (08:26)
[2022-08-10] MEDS: GABAPENTIN 300 MG CAPSULE PO ×3 (08:27→17:06)
[2022-08-10] MEDS: FAMOTIDINE 20 MG/2 ML VIAL IV PUSH ×2 (08:27→20:04)
[2022-08-10] MEDS: amLODIPine BESYLATE 5 MG TABLET PO (08:28)
[2022-08-10] MEDS: FENOFIBRATE 160 MG TABLET PO (08:28)
[2022-08-10] MEDS: lisinopriL 10 MG TABLET PO (08:29)
[2022-08-10] MEDS: METOPROLOL SUCCINATE EXT REL 100 MG TABCR 200 MG PO (08:30)
[2022-08-10 08:39] LABS: Glucose Point of Care 113 mg/dl (65-105)
--- NOTE | 2022-08-10 08:46 | WPDCNINT ---
Assessment and Plan Assessment and plan (1) DKA (diabetic ketoacidosis): Code(s): E11.10 - Type 2 diabetes mellitus with ketoacidosis without coma Status: Acute Assessment and Plan: Patient admitted with elevated blood sugars, positive anion gap and increase beta hydroxybutyrate UA negative for infection CT abdominal pelvis showed Diffuse hepatic steatosis. Patient's was given IVF bolus and and started infusion Patient was started on Insulin infusion and Q1H glucose monitoring Serial labs were done Her anion gap has closed and she is clinically improved Start p.o. diabetic diet Transition to subcutaneous Lantus and with middle insulin Discontinue insulin infusion Replace low potassium (2) Acute dehydration: Code(s): E86.0 - Dehydration Status: Acute Assessment and Plan: Improves IV fluids (3) Hyperlipidemia: Code(s): E78.5 - Hyperlipidemia, unspecified Status: Acute Assessment and Plan: Continue fenofibrate and statin (4) Yeast infection: Code(s): B37.9 - Candidiasis, unspecified Status: Resolved Assessment and Plan: Patient received fluconazole and has a PV miconazole ordered (5) Essential (primary) hypertension: Code(s): I10 - Essential (primary) hypertension Status: Acute Assessment and Plan: Continue beta-diego amlodipine and lisinopril (6) Nausea & vomiting: Code(s): R11.2 - Nausea with vomiting, unspecified Status: Acute Assessment and Plan: Improved with treatment of DKA (7) Hypokalemia: Code(s): E87.6 - Hypokalemia Status: Acute Assessment and Plan: Additional replacement ordered p.o. this morning (8) Leukocytosis: Code(s): D72.829 - Elevated white blood cell count, unspecified Status: Acute Assessment and Plan: Likely secondary to stress reaction from DKA Improving Monitor (9) Lactic acidosis: Code(s): E87.2 - Acidosis Status: Acute Assessment and Plan: Secondary to dehydration and DKA Level normalized with IV fluids No obvious source of infection at this time Patient not on antibiotics Plan DVT prophylaxis -SCDs as I expect patient to ambulate Stress ulcer prophylaxis -already on PPI Nutrition -diabetic diet Code Status - Full Code Transfer out of ICU today [facility] Consult Note Consult date: 08/10/22 Reason for consult: DKA HPI: Neva Nguyễn is a 62 year old female with type 2 diabetes, hypertension, morbid obesity who presented to ER yesterday with chief complaint of nausea vomiting crampy abdominal. She states that she started feeling sick on Saturday. Symptoms started with nausea followed by vomiting and then crampy abdominal pain. She was unable to keep anything down. She states that she takes only Lantus and checks her sugars infrequently. She states that she missed 1 dose of Lantus. She denies any fever chest pain cough shortness of breath diarrhea constipation hematochezia melena. She denies noticing any blood in the vomitus. No dysuria hematuria. Review of systems was positive for itching in the vaginal area. She also complained of nasal congestion. All other systems were reviewed and were negative In ED patient was found to be having elevated anion gap elevated blood sugar and positive beta hydroxybutyrate. She was diagnosed with DKA and admitted to ICU for further evaluation management. She was started on IV fluids and IV insulin infusion per Review of Systems Review of Systems: All systems reviewed & are unremarkable except as noted in HPI and below (HPI) [facility] Past Medical History Medical History Essential (primary) hypertension Onset 07/03/17 History of acute renal failure 2014. Required temporary dialysis History of gastroesophageal reflux (GERD) History of hypertension Hx of cyst of breast Benign Hx of diabetic neuropathy 05/2015
[2022-08-10] MEDS: PANTOPRAZOLE 40 MG TABLET PO (09:25)
[2022-08-10 10:27] LABS: Anion Gap 13 mmol/L (8-16); Blood Urea Nitrogen 11 mg/dL (7-17); Calcium 8.6 mg/dL (8.4-10.2); Carbon Dioxide 22 mmol/L (22-30); Chloride 107 mmol/L (98-107); Estimated CRCL calculation 71 ml/min; Estimated Glomerular Filt Rate > 60; Glucose 168 mg/dL (65-110); Potassium 3.8 mmol/L (3.4-5.0); Sodium 142 mmol/L (137-145)
[2022-08-10] MEDS: INSULIN ASPART (*BKC) 100 UNITS/ML SUB-Q (11:13)
[2022-08-10 11:14] LABS: Glucose Point of Care 210 mg/dl (65-105)
--- NOTE | 2022-08-10 12:45 | PC.NURSE ---
This patient, eNva Nguyễn, was transferred to [facility] on 08/10/22 at 1245. Personal belongings sent with patient. Report given to [place]. Appropriate documentation sent with patient.
--- NOTE | 2022-08-10 13:06 | ADMGEN ---
This patient, Neva Nguyễn, was transferred to [facility] Surg Room 327-01 at 1245 from ICU 6. Patient/family oriented to hospital policies and general routines including ID bracelet, bed and alarms, visiting hours, pain management, procedures, bathroom and other care routines, personal items, smoking policy, room service/diet, and visiting hours. Information on how to activate the Rapid Response Team has been discussed. Patient/Family are encouraged to report perceived risks to care and to ask questions if they do not understand what they are told or what they should do.
--- NOTE | 2022-08-10 14:42 | PM.IMPN ---
Progress Note: A&P Assessment and Plan (1) DKA (diabetic ketoacidosis): Code(s): E11.10 - Type 2 diabetes mellitus with ketoacidosis without coma Status: Acute Assessment and Plan: Patient admitted with elevated blood sugars, positive anion gap and increase beta hydroxybutyrate UA negative for infection CT abdominal pelvis showed Diffuse hepatic steatosis. Patient's was given IVF bolus and and started infusion Patient was started on Insulin infusion and Q1H glucose monitoring Serial labs were done Her anion gap has closed and she is clinically improved Start p.o. diabetic diet Transition to subcutaneous Lantus Discontinue insulin infusion Replace low potassium With DKA will stop Jardiance also reports yeast infection Consideration of GLP 1 receptor agonist in future discussed with the patient (2) Acute dehydration: Code(s): E86.0 - Dehydration Status: Acute Assessment and Plan: Improves IV fluids (3) Hyperlipidemia: Code(s): E78.5 - Hyperlipidemia, unspecified Status: Acute Assessment and Plan: Continue fenofibrate and statin (4) Yeast infection: Code(s): B37.9 - Candidiasis, unspecified Status: Resolved Assessment and Plan: Patient received fluconazole and has a PV miconazole ordered (5) Essential (primary) hypertension: Code(s): I10 - Essential (primary) hypertension Status: Acute Assessment and Plan: Continue beta-diego amlodipine and lisinopril (6) Nausea & vomiting: Code(s): R11.2 - Nausea with vomiting, unspecified Status: Acute Assessment and Plan: Improved with treatment of DKA (7) Hypokalemia: Code(s): E87.6 - Hypokalemia Status: Acute Assessment and Plan: Additional replacement ordered p.o. this morning (8) Leukocytosis: Code(s): D72.829 - Elevated white blood cell count, unspecified Status: Acute Assessment and Plan: Likely secondary to stress reaction from DKA Improving Monitor (9) Lactic acidosis: Code(s): E87.2 - Acidosis Status: Acute Assessment and Plan: Secondary to dehydration and DKA Level normalized with IV fluids No obvious source of infection at this time Patient not on antibiotics (10) Dyslipidemia: Code(s): E78.5 - Hyperlipidemia, unspecified Status: Acute (11) GERD without esophagitis: Code(s): K21.9 - Gastro-esophageal reflux disease without esophagitis Status: Acute (12) Acute kidney injury: Code(s): N17.9 - Acute kidney failure, unspecified Status: Acute (13) Acute hyperglycemia: Code(s): R73.9 - Hyperglycemia, unspecified Status: Acute Plan DVT prophylaxis -SCDs ambulatory patient Stress ulcer prophylaxis -already on PPI Nutrition -diabetic diet Code Status - Full Code discuss with butter printer Subjective Date/time seen: 08/10/22 14:42 Interval history: This is a 62-year-old female patient who has a history of insulin-dependent diabetes and hypertension.? The patient give level nausea vomiting since yesterday.? The patient also developed abdominal cramping.? She tried to hold off coming to ER because today is her birthday as well as her [employer] libertarian.? The patient has had multiple episodes of nonbilious nonbloody emesis today.? She has not had any fever or any diarrhea.? The patient's cramping is worse with vomiting.? She also has lost her voice from vomiting so much.? The patient stated that she has been taking her medication as prescribed.? She also stated that she has never been in DKA.? Her white count was 22.8 her H&H is 17.2 and 52.8.? On her ABGs her pH was normal and her CO2 was 28.9.? Her creatinine was 1.2 BUN 22 anion gap is 23.? The patient was given 2 L of IV normal saline bolus.? Her lactic was initially 4.4 and came down to 2.5.? A1c was noted to be 7.7.? Her blood sugar is 208 now.? Patient's initial beta hydroxybutyrate acetoacet
[2022-08-10 16:44] LABS: Glucose Point of Care 112 mg/dl (65-105)
[2022-08-10 19:52] LABS: Glucose Point of Care 204 mg/dl (65-105)
[2022-08-10] MEDS: SIMVASTATIN 10 MG TABLET PO (20:04)
[2022-08-10] MEDS: MICONAZOLE NITRATE 2% VAGINAL CREAM 45 GM TUBE 1 APPFUL VAGINAL (20:04)
--- NOTE | 2022-08-11 05:17 | PC.NURSE ---
Dr. Huitron notified that pt does not have IV access
[2022-08-11 05:51] VITALS: BP 166/76; PULSE 74; RESP 18; TEMP 36.4; O2SAT 97
[2022-08-11 06:51] LABS: Glucose Point of Care 133 mg/dl (65-105)
[2022-08-11 06:56] LABS: Hemoglobin 14.2 g/dL (12.0-15.0); Mean Corpuscular HGB Conc 32.3 g/dl (32-36); Mean Corpuscular Hemoglobin 28.7 pg (26-34); Mean Corpuscular Volume 88.9 fl (80-100); Mean Platelet Volume 10.2 fl (7.4-10.4); Platelet Count Result 240 k/mm3 (150-375); Red Blood Count 4.95 M/mm3 (4.2-5.4); Red Cell Distribution Width 13.9 % (11.5-14.5); White Blood Count 9.5 K/mm3 (4.5-10.0)
[2022-08-11 07:10] LABS: Alanine Aminotransferase 30 U/L (6-35); Albumin Level 3.7 g/dL (3.5-5.1); Alkaline Phosphatase 56 U/L (38-126); Anion Gap 10 mmol/L (8-16); Aspartate Amino Transferase 43 U/L (14-36); Bilirubin,Total 0.6 mg/dL (0.2-1.3); Blood Urea Nitrogen 14 mg/dL (7-17); Calcium 8.4 mg/dL (8.4-10.2); Carbon Dioxide 27 mmol/L (22-30); Chloride 105 mmol/L (98-107); Estimated CRCL calculation 57 ml/min; Estimated Glomerular Filt Rate > 60; Glucose 124 mg/dL (65-110); Magnesium 1.9 mg/dL (1.6-2.3); Potassium 3.5 mmol/L (3.4-5.0); Sodium 142 mmol/L (137-145)
[2022-08-11] MEDS: GABAPENTIN 300 MG CAPSULE PO (09:44)
[2022-08-11] MEDS: METOPROLOL SUCCINATE EXT REL 100 MG TABCR 200 MG PO (09:45)
[2022-08-11] MEDS: FAMOTIDINE 20 MG TABLET PO (09:45)
[2022-08-11] MEDS: PANTOPRAZOLE 40 MG TABLET PO (09:45)
[2022-08-11] MEDS: lisinopriL 10 MG TABLET PO (09:45)
[2022-08-11] MEDS: FENOFIBRATE 160 MG TABLET PO (09:46)
[2022-08-11] MEDS: amLODIPine BESYLATE 5 MG TABLET PO (09:46)
[2022-08-11] MEDS: RALOXIFENE HCL (*CHEMO) 60 MG TABLET PO (09:47)
[2022-08-11] MEDS: INSULIN GLARGINE (*BKC) 100 UNITS/ML 50 UNITS SUB-Q (09:51)
[2022-08-11 11:32] LABS: Glucose Point of Care 181 mg/dl (65-105)
--- NOTE | 2022-08-11 11:59 | PM.DS ---
DS: Admitting Diagnosis Discharge Date 08/11/2022 Admitting Diagnosis DKA DS: Discharge Diagnosis Discharge Diagnosis (1) DKA (diabetic ketoacidosis): Code(s): E11.10 - Type 2 diabetes mellitus with ketoacidosis without coma Status: Acute (2) Acute dehydration: Code(s): E86.0 - Dehydration Status: Acute (3) Hyperlipidemia: Code(s): E78.5 - Hyperlipidemia, unspecified Status: Acute (4) Yeast infection: Code(s): B37.9 - Candidiasis, unspecified Status: Resolved (5) Essential (primary) hypertension: Code(s): I10 - Essential (primary) hypertension Status: Acute (6) Nausea & vomiting: Code(s): R11.2 - Nausea with vomiting, unspecified Status: Acute (7) Hypokalemia: Code(s): E87.6 - Hypokalemia Status: Acute (8) Leukocytosis: Code(s): D72.829 - Elevated white blood cell count, unspecified Status: Acute (9) Lactic acidosis: Code(s): E87.2 - Acidosis Status: Acute (10) Dyslipidemia: Code(s): E78.5 - Hyperlipidemia, unspecified Status: Acute (11) GERD without esophagitis: Code(s): K21.9 - Gastro-esophageal reflux disease without esophagitis Status: Acute (12) Acute kidney injury: Code(s): N17.9 - Acute kidney failure, unspecified Status: Acute (13) Acute hyperglycemia: Code(s): R73.9 - Hyperglycemia, unspecified Status: Acute DS: Summary Hospital Course Reason for hospitalization: This is a 62-year-old female patient who has a history of insulin-dependent diabetes and hypertension.? The patient give level nausea vomiting since yesterday.? The patient also developed abdominal cramping.? 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 The patient has had multiple episodes of nonbilious nonbloody emesis today.? She has not had any fever or any diarrhea.? The patient's cramping is worse with vomiting.? She also has lost her voice from vomiting so much.? The patient stated that she has been taking her medication as prescribed.? She also stated that she has never been in DKA.? Her white count was 22.8 her H&H is 17.2 and 52.8.? On her ABGs her pH was normal and her CO2 was 28.9.? Her creatinine was 1.2 BUN 22 anion gap is 23.? The patient was given 2 L of IV normal saline bolus.? Her lactic was initially 4.4 and came down to 2.5.? A1c was noted to be 7.7.? Her blood sugar is 208 now.? Patient's initial beta hydroxybutyrate acetoacetate was initially 3.9 and is now 2.73.? Her anion gap came down from 23 and is now 16.? Urine had 3+ glucose 2+ protein 4+ ketones and 2+ blood.? She had many squamous cells which is a contaminant.? The patient was given Zofran in the emergency room, and IV fluids.? The patient is being admitted to ICU for DKA as observation on the date of service of 08/09/2022. Hospital Course: # DKA: Patient admitted with elevated blood sugars, positive anion gap and increased beta hydroxybutyrate UA negative for infection CT abdominal pelvis showed diffuse hepatic steatosis. Patient's was given IVF bolus and and started infusion Patient was started on Insulin infusion and Q1H glucose monitoring Serial labs were done Her anion gap has closed and she is clinically improved p.o. diabetic diet Transition to subcutaneous Lantus Discontinue insulin infusion Replace low potassium A1c came back at 7.7 She is only on Lantus basal insulin and added prandial insulin with NovoLog 7 units 3 times a day She is advised to follow up with PCP also suggested to see an accounts receivable analyst for diabetes management She is going to be off of his Jardiance because of DKA. She is only going to be on metformin Consideration of GLP 1 receptor agonist in future and encouraged her to discuss this option with her PCP and/or accounts receivable analyst # Acute dehydration: Improves IV fluids # Hyperlipidemia: Continue fenofibrate and statin
--- NOTE | 2022-08-11 17:02 | PC.NURSE ---
Patient called to clarify discharging mediations and dosage. All questions answered with no further questions at this time.
== END 2022-08-11 12:49 | disposition home or self-care (01) ==
LOC: ANHED 12:31 → ANHICU 15:01 → ANH3MEDSUR 08-10 13:01
PROVIDERS: Internal Medicine; Nurse Practitioner; Admitting Provider Internal Medicine; Emergency Provider Nurse Practitioner Family; PCP Family Medicine; Visit Provider Internal Medicine
DX: E11.10 Type 2 diabetes mellitus with ketoacidosis without coma (principal); E86.0 Dehydration; E78.5 Hyperlipidemia, unspecified; R19.7 Diarrhea, unspecified; B37.9 Candidiasis, unspecified; R11.2 Nausea with vomiting, unspecified; E87.6 Hypokalemia; D72.829 Elevated white blood cell count, unspecified; K21.9 Gastro-esophageal reflux disease without esophagitis; N17.9 Acute kidney failure, unspecified; I10 Essential (primary) hypertension; R10.9 Unspecified abdominal pain; E11.40 Type 2 diabetes mellitus with diabetic neuropathy, unspecified; E11.65 Type 2 diabetes mellitus with hyperglycemia; G47.33 Obstructive sleep apnea (adult) (pediatric); K76.0 Fatty (change of) liver, not elsewhere classified; Z20.822 Contact with and (suspected) exposure to COVID-19; E66.01 Morbid (severe) obesity due to excess calories; Z68.35 Body mass index [BMI] 35.0-35.9, adult; Z87.891 Personal history of nicotine dependence; Z87.448 Personal history of other diseases of urinary system; Z79.4 Long term (current) use of insulin; Z91.14 Patient's other noncompliance with medication regimen; Z79.899 Other long term (current) drug therapy
CPT/HCPCS: 36415; 36600; 74177; 80048; 80053; 81001; 82010; 82805; 82948; 83036; 83605; 83735; 84100; 84443; 85025; 85027; 86140; 96361; 96365; 96366; 96368; 96372; 96375; 96376; 99285; A9270; C9803; G0378; J0360; J1650; J1815; J2405; J2765; J3480; J7030; Q9967; U0003; U0005

== ENCOUNTER 2022-08-20 01:46 | Day surgery (SDC) | payer BC, SELFPAY ==
[2022-08-02 14:00] VITALS: BMI 35.0
[2022-08-20 08:45] VITALS: BP 156/114; PULSE 94; RESP 17; TEMP 36.8; O2SAT 98; BMI 35.4
[2022-08-20] MEDS: LACTATED RINGERS 1,000 ML 150 ML IV CONT (08:56)
--- NOTE | 2022-08-20 08:59 | PM.IMHP ---
H&P: HPI History of Present Illness Date/Time: 08/20/22 08:59 Chief Complaint: Neoplasia screening. Narrative: This is a 62-year-old white female patient presents for neoplasia screening colonoscopy. Patient's current weight appetite and bowel movements are normal. Patient denies abdominal pain. She Has had no bleeding. Patient's past medical history is significant for diabetes and chronic kidney disease. Review of Systems Review of Systems: Review of systems noncontributory. [facility] Past Medical History Medical History Essential (primary) hypertension Onset 07/03/17 History of acute renal failure 2014. Required temporary dialysis History of gastroesophageal reflux (GERD) History of hypertension Hx of cyst of breast Benign Hx of diabetic neuropathy 05/2015 Hx of osteoporosis 01/2012 Hyperlipidemia IDDM (insulin dependent diabetes mellitus) BRAEDEN (obstructive sleep apnea) Untreated Surgical History Surgical History History of tonsillectomy (~1963) History of tubal ligation 1985 Hx of removal of cyst (~1997) breast Family History Family History Mother Hypertension Family history of hemochromatosis Father Hypertension Family history of gastrointestinal disorder Family history of diabetes mellitus in first degree relative Sibling Family history of malignant neoplasm of cervix Social History Social History Social History: Ms. Nguyễn lives at home with her . She is independent in her daily activities. She works for [employer] and today was her last day of she is retiring. Her PCP is Dr. Bermudez. She designates her , Nikhil, as her surrogate decision maker and she would like to be a full code. Code status full code Smoking status: Former smoker Alcohol intake: never Substance use: current Substance use type: marijuana Other substance usage details: edible marijuana Living arrangements: with family Spiritual care concerns: No Meds Home Medications and Allergies Home Medications Medication Instructions Recorded Confirmed Type blood sugar diagnostic (RecurlyTouch #300 strips 10/25/20 08/20/22 Rx Verio test strips) lancets 33 gauge (OneTouch Delica #300 ea 10/25/20 08/20/22 Rx Lancets) omeprazole 40 mg capsule,delayed 40 mg PO DAILY #90 caps 09/26/21 08/20/22 Rx release pen needle, diabetic 32 gauge x #100 ea 11/08/21 08/20/22 Rx 5/32 (BD Ultra-Fine Avani Pen Needle) raloxifene 60 mg tablet 60 mg PO DAILY #90 tabs 05/22/22 08/20/22 Rx miconazole nitrate 2 % vaginal 1 appful vaginal HS #45 grams 08/11/22 08/20/22 Rx cream amlodipine 10 mg tablet (Norvasc) 10 mg PO DAILY #90 tabs 08/16/22 08/20/22 Rx blood-glucose meter,continuous #1 ea 08/16/22 08/20/22 Rx (Dexcom G6 Cleaner And Trimmer misc) blood-glucose sensor (Dexcom G6 #3 ea 08/16/22 08/20/22 Rx Sensor device) blood-glucose transmitter (Dexcom #1 ea 08/16/22 08/20/22 Rx G6 Transmitter device) fenofibrate 160 mg tablet 160 mg PO DAILY #90 tabs 08/16/22 08/20/22 Rx gabapentin 300 mg capsule 300 mg PO TID #270 caps 08/16/22 08/20/22 Rx insulin glargine 100 unit/mL (3 50 unit (0.5 mL) subcut DAILY #15 08/16/22 08/20/22 Rx mL) subcutaneous pen (Lantus mL Solostar U-100 Insulin) insulin lispro 200 unit/mL (3 mL) 7 unit (0.035 mL) subcut TID #6 mL 08/16/22 08/20/22 Rx subcutaneous pen (Humalog KwikPen U-200 Insulin) lisinopril 20 mg tablet 20 mg PO DAILY #90 tabs 08/16/22 08/20/22 Rx metformin 500 mg tablet,extended 1,000 mg PO DAILY #180 tabs 08/16/22 08/20/22 Rx release 24 hr metoprolol succinate 200 mg 200 mg PO DAILY #90 tabs 08/16/22 08/20/22 Rx tablet,extended release 24 hr simvastatin 10 mg tablet 10 mg PO DAILY #90 tabs 08/16/22 08/20/22 Rx
--- NOTE | 2022-08-20 09:24 | WPDANESEPPF ---
Anes - Initial Pre Proc Eval Procedure: Operation Date: 08/20/22 09:30 Proposed Procedures p Screening Colonoscopy - Charles Ortiz MD Date/Time: 08/20/22 09:24 Surgeon: Charles Ortiz MD Pre Op Diagnosis: neoplasm screening Patient Data Age: 62 Gender: F Height: 1.57 m Weight: 88 kg Last Vital Signs Temp 98.2 F 08/20/22 08:45 Pulse 94 08/20/22 08:45 Resp 17 08/20/22 08:45 BP 156/114 H 08/20/22 08:45 Pulse Ox 98 08/20/22 08:45 O2 Del Method Room Air 08/20/22 08:45 Allergies Allergy/AdvReac Type Severity Reaction Status Date / Time No Known Allergies Allergy Unknown Verified 08/20/22 08:43 Home Medications Medication Instructions Recorded Confirmed Type blood sugar diagnostic (OneTouch #300 strips 10/25/20 08/20/22 Rx Verio test strips) lancets 33 gauge (OneTouch Delica #300 ea 10/25/20 08/20/22 Rx Lancets) omeprazole 40 mg capsule,delayed 40 mg PO DAILY #90 caps 09/26/21 08/20/22 Rx release pen needle, diabetic 32 gauge x #100 ea 11/08/21 08/20/22 Rx 5/32 (BD Ultra-Fine Avani Pen Needle) raloxifene 60 mg tablet 60 mg PO DAILY #90 tabs 05/22/22 08/20/22 Rx miconazole nitrate 2 % vaginal 1 appful vaginal HS #45 grams 08/11/22 08/20/22 Rx cream amlodipine 10 mg tablet (Norvasc) 10 mg PO DAILY #90 tabs 08/16/22 08/20/22 Rx blood-glucose meter,continuous #1 ea 08/16/22 08/20/22 Rx (Dexcom G6 Animal Caregiver misc) blood-glucose sensor (Dexcom G6 #3 ea 08/16/22 08/20/22 Rx Sensor device) blood-glucose transmitter (Dexcom #1 ea 08/16/22 08/20/22 Rx G6 Transmitter device) fenofibrate 160 mg tablet 160 mg PO DAILY #90 tabs 08/16/22 08/20/22 Rx gabapentin 300 mg capsule 300 mg PO TID #270 caps 08/16/22 08/20/22 Rx insulin glargine 100 unit/mL (3 50 unit (0.5 mL) subcut DAILY #15 08/16/22 08/20/22 Rx mL) subcutaneous pen (Lantus mL Solostar U-100 Insulin) insulin lispro 200 unit/mL (3 mL) 7 unit (0.035 mL) subcut TID #6 mL 08/16/22 08/20/22 Rx subcutaneous pen (Humalog KwikPen U-200 Insulin) lisinopril 20 mg tablet 20 mg PO DAILY #90 tabs 08/16/22 08/20/22 Rx metformin 500 mg tablet,extended 1,000 mg PO DAILY #180 tabs 08/16/22 08/20/22 Rx release 24 hr metoprolol succinate 200 mg 200 mg PO DAILY #90 tabs 08/16/22 08/20/22 Rx tablet,extended release 24 hr simvastatin 10 mg tablet 10 mg PO DAILY #90 tabs 08/16/22 08/20/22 Rx Patient hx anesthesia problems: none Family hx anesthesia problems: none Results Review: All pre-operative results and documents have been reviewed as part of the pre-operative evaluation. [facility] Past Medical History Medical History Essential (primary) hypertension Onset 07/03/17 History of acute renal failure 2014. Required temporary dialysis History of gastroesophageal reflux (GERD) History of hypertension Hx of cyst of breast Benign Hx of diabetic neuropathy 05/2015 Hx of osteoporosis 01/2012 Hyperlipidemia IDDM (insulin dependent diabetes mellitus) BRAEDEN (obstructive sleep apnea) Untreated Surgical History Surgical History History of tonsillectomy (~1963) History of tubal ligation 1984 Hx of removal of cyst (~1997) breast Family History Family History Mother Hypertension Family history of hemochromatosis Father Hypertension Family history of gastrointestinal disorder Family history of diabetes mellitus in first degree relative Sibling Family history of malignant neoplasm of cervix Social History Social History Social History: Ms. Nguyễn lives at home with her . She is independent in her daily activities. She works for [employer] and today was her last day of she is retiring. Her PCP is Dr. Bermudez. She designates her , Nikhil, as her surrogate inez
[2022-08-20 09:29] LABS: Glucose Point of Care 156 mg/dl (65-105)
[2022-08-20] MEDS: SIMETHICONE ORAL SUSPENSION 20 MG/0.3 ML 30 ML BOTTLE 0.6 ML IRRIGATION (09:41)
[2022-08-20 09:50] VITALS: BP 107/56; PULSE 82; RESP 17; O2SAT 100
[2022-08-20 09:59] LABS: Glucose Point of Care 135 mg/dl (65-105)
[2022-08-20 10:00] VITALS: BP 144/83; PULSE 73; RESP 18; O2SAT 99
[2022-08-20 10:10] VITALS: BP 162/82; PULSE 70; RESP 20; O2SAT 99
== END 2022-08-20 10:24 | disposition home or self-care (01) ==
PROVIDERS: PCP Family Medicine; Visit Provider Internal Medicine Gastroenterology
PROC: 0DJD8ZZ Inspection of Lower Intestinal Tract, Via Natural or Artificial Opening Endoscopic (ICD-10-PCS; CPT 45378; principal; 2022-08-20 09:30)
DX: Z09 Encounter for follow-up examination after completed treatment for conditions other than malignant neoplasm (principal); K63.5 Polyp of colon; Z79.84 Long term (current) use of oral hypoglycemic drugs; Z79.4 Long term (current) use of insulin; I10 Essential (primary) hypertension; E11.40 Type 2 diabetes mellitus with diabetic neuropathy, unspecified; M81.0 Age-related osteoporosis without current pathological fracture; E78.5 Hyperlipidemia, unspecified; G47.33 Obstructive sleep apnea (adult) (pediatric); Z87.891 Personal history of nicotine dependence; F12.90 Cannabis use, unspecified, uncomplicated; E66.9 Obesity, unspecified; Z68.35 Body mass index [BMI] 35.0-35.9, adult
CPT/HCPCS: 45385; 82948; 88305; J2704; J7120

== ENCOUNTER 2022-12-24 08:45 | Outpatient (RCR) | payer BC, SELFPAY | END 2023-03-11 10:36 | disposition home or self-care (01) | LOC: ANHDMC 08:45 | PROVIDERS: PCP Family Medicine; Visit Provider Internal Medicine Endocrinology, Diabetes & Metabolism | DX: E11.9 Type 2 diabetes mellitus without complications (principal); Z79.4 Long term (current) use of insulin | CPT/HCPCS: 99199 ==

== ENCOUNTER 2023-05-29 16:24 | Observation (INO) | payer BC, SELFPAY ==
[2023-05-29] VITALS (7 sets, daily range): BP systolic 113–180; BP diastolic 76–102; PULSE 95–126; RESP 10–19; TEMP 36.3–36.5; O2SAT 97–100; BMI 34.9
--- NOTE | ~2023-05-29 | CT_ITS ---
EXAMINATION: CT abdomen pelvis wo con DATE: 05/29/2023 17:50 INDICATION: Upper abdominal pain TECHNIQUE: Computed tomography (CT) of the abdomen and pelvis was performed without intravenous contr ast. Automated exposure control and iterative reconstruction technique were employed. The dose-length product was 1188.60 mGy-cm. COMPARISON: 08/09/2022. FINDINGS: Lower thorax: Mild coronary artery calcification. Small hiatal hernia. Right middle lobe scar. Liver: Diffuse fatty infiltration. Biliary/Gallbladder: Gallbladder is filled diffusely by hyperdense material, may represent sludge or spurious excretion of contrast. No stone or inflammatory change. No bile duct dilation. Pancreas: No mass or duct dilation. Spleen: Normal. Adrenals:No mass. Kidneys: Bilateral simple cysts. No suspicious mass, stone, or hydronephrosis. GI tract: No small or large bowel dilation. Normal appendix. Diverticulosis without diverticulitis. Mesentery/Peritoneum: No ascites, mass, or free air. Retroperitoneum: No mass. Atherosclerotic abdominal aortic and/or arterial calcifications. Pelvis: Pelvic organs are within normal limits. Soft Tissues: Soft tissues and body wall unremarkable. Bones: No acute osseous finding. IMPRESSION: Hepatic steatosis. Reviewed, dictated and finalized at location K. IMPRESSION: Hepatic steatosis.
--- NOTE | 2023-05-29 16:34 | ECG_ITS ---
Measurements Intervals Cope Rate: 119 P: 70 SC: 134 QRS: 21 QRSD: 89 T: 63 QT: 341 QTc: 480 Interpretive Statements SINUS TACHYCARDIA POSSIBLE LEFT ATRIAL ENLARGEMENT [-0.1mV P WAVE IN V1/V2] NONSPECIFIC ST & T-WAVE ABNORMALITY ABNORMAL RHYTHM ECG COMPARED TO ECG 04/17/2022 20:14:55 HEART RATE INCREASED NO OTHER DIFFERENCE Electronically Signed On 05-31-2023 16:51:55 CDT by Tomy Doan M.D.
--- NOTE | 2023-05-29 17:04 | ED.ABDPAIN ---
HPI - Abdominal Pain General Chief Complaint: Abdominal Pain Stated Complaint: abdomen pain Time Seen by Provider: 05/29/23 17:04 Source: patient Mode of arrival: ambulatory Limitations: no limitations History of Present Illness HPI narrative: Patient is 62 years old white female came to the emergency room because of nausea, vomiting and intermittent diffuse abdominal pain and back pain. Patient started on Ozempic recently, had the second dose of 0.25 on Saturday, Saturday work-up with nausea and vomiting today developed abdominal cramps, sharp stabbing pain intermittently, different parts of her abdomen and back. She denies any fever, diarrhea or constipation. Not eating or drinking for the last 5 days. Patient reports no history of abdominal surgery. Related Data Home Medications Medication Instructions Recorded Confirmed insulin glargine 100 unit/mL (3 50 unit subcut DAILY 03/27/23 03/27/23 mL) subcutaneous pen (Lantus Solostar U-100 Insulin) Allergies Allergy/AdvReac Type Severity Reaction Status Date / Time semaglutide [From Ozempic] AdvReac Intermediate vomitting Verified 05/29/23 15:42 Review of Systems Review of Systems: All systems reviewed & are unremarkable except as noted in HPI and below PMFSH Past Medical History Medical History Essential (primary) hypertension Onset 07/03/17 Family history of hemochromatosis History of acute renal failure 2014. Required temporary dialysis History of gastroesophageal reflux (GERD) History of hypertension Hx of cyst of breast Benign Hx of diabetic neuropathy 05/2015 Hx of osteoporosis 01/2012 Hyperlipidemia IDDM (insulin dependent diabetes mellitus) BRAEDEN (obstructive sleep apnea) Untreated Surgical History Surgical History History of tonsillectomy (~1963) History of tubal ligation 1984 Hx of removal of cyst (~1997) breast Family History Family History Mother Hypertension Family history of hemochromatosis Father Hypertension Family history of gastrointestinal disorder Family history of diabetes mellitus in first degree relative Sibling Family history of malignant neoplasm of cervix Social History Social History Social History: Ms. Nguyễn lives at home with her . She is independent in her daily activities. She works for [employer] and today was her last day of she is retiring. Her PCP is Dr. Bermudez. She designates her , Nikhil, as her surrogate decision maker and she would like to be a full code. Code status full code Smoking status: Former smoker Alcohol intake: never Substance use: former Substance use type: marijuana Other substance usage details: edible marijuana Lack of Transportation: No Lack of Food: Never True Current Housing: I Have Housing Concerned About Future Housing: No Difficulty Paying Gas/Electric Bills: No Difficulty Paying for Meds: No Currently Unemployed: No Education: Associate Degree Living arrangements: with family Occupation/Education: retired Gender identity (if verbalized by the patient): Female Sexual Orientation (if Verbalized by the Patient): Straight or Heterosexual Spiritual care concerns: No Agree to blood products: Yes Exam Narrative: General appearance: Well-developed, well-nourished Skin: Normal color Head: Normocephalic, nontraumatic Eyes: Clear conjunctiva ENT: Oropharynx normal, ears normal, nose normal Neck: Supple, nontender Chest and respiratory: Airway patent, no respiratory distress, no accessory muscle use Heart: Regular rate/rhythm Abdomen: Soft, nontender, no organomegaly, quiet bowel sounds Vascular: Normal peripheral pulses, normal capillary refill. Musculoskeletal: Normal range of motion, nontender back Neurologic: Al
[2023-05-29] MEDS: SODIUM CHLORIDE 0.9% IV 1,000 ML 999 ML IV CONT (17:19)
[2023-05-29 17:23] LABS: Basophils Absolute Auto 0.1 K/mm3 (0.0-0.1); Basophils Percent Auto 0.4 % (0.2-1.2); Eosinophils Percent Auto 0.1 % (0-4.4); Hematocrit 45.4 % (37.0-47.0); Hemoglobin 15.5 g/dL (12.0-15.0); Immature Granulocyte Absolute 0.12 K/mm3 (0.00-0.031); Immature Granulocyte Percent A 0.6 % (0-0.5); Lymphocytes Absolute Auto 3.21 K/mm3 (0.9-3.2); Lymphocytes Percent Auto 16.5 % (18.3-44.2); Mean Corpuscular HGB Conc 34.1 g/dl (32-36); Mean Corpuscular Hemoglobin 29.8 pg (26-34); Mean Corpuscular Volume 87.3 fl (80-100); Mean Platelet Volume 10.6 fl (7.4-10.4); Monocytes Absolute Auto 1.2 K/mm3 (0.1-0.6); Monocytes Percent Auto 6.3 % (2.6-8.5); Neutrophils Absolute Auto 14.8 K/mm3 (1.3-6.7); Neutrophils Percent Auto 76.1 % (45.5-73.1); Platelet Count Result 446 k/mm3 (150-375); Red Cell Distribution Width 13.2 % (11.5-14.5); White Blood Count 19.4 K/mm3 (4.5-10.0)
[2023-05-29 17:34] LABS: Alanine Aminotransferase 37 U/L (6-35); Albumin Level 5.3 g/dL (3.5-5.1); Alkaline Phosphatase 92 U/L (38-126); Anion Gap 16 mmol/L (8-16); Aspartate Amino Transferase 42 U/L (14-36); Bilirubin,Total 0.7 mg/dL (0.2-1.3); Blood Urea Nitrogen 31 mg/dL (7-17); Calcium 10.2 mg/dL (8.4-10.2); Carbon Dioxide 24 mmol/L (22-30); Chloride 102 mmol/L (98-107); Estimated Glomerular Filt Rate 22; Glucose 224 mg/dL (65-110); Lipase 101 U/L (23-300); Potassium 3.4 mmol/L (3.4-5.0); Sodium 142 mmol/L (137-145)
[2023-05-29 17:45] LABS: Troponin I 0.018 ng/mL (0.000-0.034)
[2023-05-29 18:42] LABS: Appearance Urine Cloudy (Clear); Bacteria Urine Rare /hpf; Bilirubin Urine Negative (Negative); Color Urine Yellow (Yellow); Glucose Urine UA 2+ mg/dL (Negative); Hyaline Casts Urine Present /lpf; Ketones Urine 1+ mg/dL (Negative); Leukocyte Esterase Ur Negative LEU/UL (Negative); Nitrate Urine Negative (Negative); Non Pathogenic Casts >20; Protein Urine 3+ mg/dL (Negative); RBC Urine 0-2 /hpf (0-2); Specific Grav Ur 1.017 (1.001-1.035); Squamous Epithelial Cell Urine Many /hpf (Few)
[2023-05-29 18:47] LABS: Add Urine Microscopic? YES
--- NOTE | 2023-05-29 20:16 | PM.IMHP ---
H&P: HPI History of Present Illness Date/Time: 05/29/23 20:16 Chief Complaint: n/v/abdominal pain. Narrative: This is a 62-year-old female with past medical history significant for type diabetes mellitus, GERD, obesity, hepatic steatosis, hypertension, peripheral diabetic neuropathy, dyslipidemia. Patient was recently started on Ozempic presents to the emergency room due to nausea ,vomiting ,abdominal pain primary care physician advised her to come to emergency room. Abdominal pain is diffuse, colic in nature, denies any fevers, chills, rigors, any pain or burning with urination, has not been able to keep anything down in the last several days. Preliminary workup was significant for CBC with WBC of 19,000, BMP was significant for BUN 31 creatinine 2.2, a urinalysis was significant for WBCs 11-20 CT of abdomen and pelvis was reported as: EXAMINATION: CT abdomen pelvis wo con DATE: 05/29/2023 17:50 INDICATION: Upper abdominal pain TECHNIQUE: Computed tomography (CT) of the abdomen and pelvis was performed without intravenous contrast. Automated exposure control and iterative reconstruction technique were employed. The dose-length product was 1188.60 mGy-cm. COMPARISON: 08/09/2022. FINDINGS: Lower thorax: Mild coronary artery calcification. Small hiatal hernia. Right middle lobe scar. Liver: Diffuse fatty infiltration.? Biliary/Gallbladder: Gallbladder is filled diffusely by hyperdense material, may represent sludge or spurious excretion of contrast. No stone or inflammatory change. No bile duct dilation. Pancreas: No mass or duct dilation. Spleen: Normal. Adrenals:No mass. Kidneys: Bilateral simple cysts. No suspicious mass, stone, or hydronephrosis. GI tract: No small or large bowel dilation. Normal appendix. Diverticulosis without diverticulitis. Mesentery/Peritoneum: No ascites, mass, or free air. Retroperitoneum: No mass. Atherosclerotic abdominal aortic and/or arterial calcifications. Pelvis: Pelvic organs are within normal limits. Soft Tissues: Soft tissues and body wall unremarkable. Bones:? No acute osseous finding. IMPRESSION: Hepatic steatosis. [facility] Past Medical History Medical History Essential (primary) hypertension Onset 07/03/17 Family history of hemochromatosis History of acute renal failure 2014. Required temporary dialysis History of gastroesophageal reflux (GERD) History of hypertension Hx of cyst of breast Benign Hx of diabetic neuropathy 05/2015 Hx of osteoporosis 01/2012 Hyperlipidemia IDDM (insulin dependent diabetes mellitus) BRAEDEN (obstructive sleep apnea) Untreated Surgical History Surgical History History of tonsillectomy (~1963) History of tubal ligation 1985 Hx of removal of cyst (~1997) breast Family History Family History Mother Hypertension Family history of hemochromatosis Father Hypertension Family history of gastrointestinal disorder Family history of diabetes mellitus in first degree relative Sibling Family history of malignant neoplasm of cervix Social History Social History Social History: Ms. Nguyễn lives at home with her . She is independent in her daily activities. She works for [employer] and today was her last day of she is retiring. Her PCP is Dr. Bermudez. She designates her , Nikhil, as her surrogate decision maker and she would like to be a full code. Code status full code Smoking status: Former smoker Alcohol intake: never Substance use: never Substance use type: marijuana Other substance usage details: edible marijuana Lack of Transportation: No Lack of Food: Never True Current Housing: I Have Housing Concerned About Future Housing: No Difficulty Paying Gas/Electric Bills: No Difficulty Paying for Meds: No
--- NOTE | 2023-05-29 22:08 | ADMGEN ---
This patient, Neva Nguyễn, was admitted to 3 [facility] Surg Room 309-01. Patient/family oriented to hospital policies and general routines including ID bracelet, bed and alarms, visiting hours, pain management, procedures, bathroom and other care routines, personal items, smoking policy, room service/diet, and visiting hours. Information on how to activate the Rapid Response Team has been discussed. Patient/Family are encouraged to report perceived risks to care and to ask questions if they do not understand what they are told or what they should do.
[2023-05-29] MEDS: SODIUM CHLORIDE 0.9% IV 1,000 ML 200 ML IV CONT (23:31)
[2023-05-30 01:11] VITALS: BP 129/77; PULSE 94; RESP 16; O2SAT 98
[2023-05-30] MEDS: SODIUM CHLORIDE 0.9% IV 1,000 ML 200 ML IV CONT (04:40)
[2023-05-30 05:49] VITALS: BP 154/79; PULSE 87; RESP 16; TEMP 36.1; O2SAT 99
[2023-05-30 06:46] LABS: Anion Gap 10 mmol/L (8-16); Blood Urea Nitrogen 32 mg/dL (7-17); Calcium 8.6 mg/dL (8.4-10.2); Carbon Dioxide 27 mmol/L (22-30); Chloride 108 mmol/L (98-107); Estimated CRCL calculation 33 ml/min; Estimated Glomerular Filt Rate 32; Glucose 160 mg/dL (65-110); Magnesium 1.8 mg/dL (1.6-2.3); Phosphorus 2.7 mg/dL (2.5-4.5); Sodium 145 mmol/L (137-145)
[2023-05-30 06:49] LABS: Basophils Absolute Auto 0.1 K/mm3 (0.0-0.1); Basophils Percent Auto 0.4 % (0.2-1.2); Eosinophils Percent Auto 0.1 % (0-4.4); Hematocrit 40.4 % (37.0-47.0); Hemoglobin 13.1 g/dL (12.0-15.0); Immature Granulocyte Absolute 0.05 K/mm3 (0.00-0.031); Immature Granulocyte Percent A 0.4 % (0-0.5); Lymphocytes Absolute Auto 3.22 K/mm3 (0.9-3.2); Lymphocytes Percent Auto 25.6 % (18.3-44.2); Mean Corpuscular HGB Conc 32.4 g/dl (32-36); Mean Corpuscular Hemoglobin 29.2 pg (26-34); Mean Corpuscular Volume 90.2 fl (80-100); Mean Platelet Volume 10.1 fl (7.4-10.4); Monocytes Absolute Auto 0.7 K/mm3 (0.1-0.6); Monocytes Percent Auto 5.3 % (2.6-8.5); Neutrophils Absolute Auto 8.6 K/mm3 (1.3-6.7); Neutrophils Percent Auto 68.2 % (45.5-73.1); Platelet Count Result 292 k/mm3 (150-375); Red Blood Count 4.48 M/mm3 (4.2-5.4); Red Cell Distribution Width 13.2 % (11.5-14.5); White Blood Count 12.6 K/mm3 (4.5-10.0)
[2023-05-30 08:11] VITALS: PULSE 90; O2SAT 99
[2023-05-30] MEDS: GABAPENTIN 300 MG CAPSULE PO ×3 (08:44→16:28)
[2023-05-30] MEDS: ENOXAPARIN 30 MG/0.3 ML SYRINGE SUB-Q (08:44)
[2023-05-30] MEDS: POTASSIUM CHLORIDE 20 MEQ ER TABLET 40 MEQ PO ×2 (08:45→13:30)
[2023-05-30] MEDS: METOPROLOL SUCCINATE EXT REL 100 MG TABCR 200 MG PO (08:46)
[2023-05-30] MEDS: SODIUM CHLORIDE 0.9% IV 1,000 ML 150 ML IV CONT ×2 (08:46→16:28)
[2023-05-30] MEDS: PANTOPRAZOLE 40 MG TABLET PO ×2 (08:46→16:28)
[2023-05-30] MEDS: amLODIPine BESYLATE 5 MG TABLET 10 MG PO (08:46)
[2023-05-30] MEDS: INSULIN GLARGINE (*BKC) 100 UNITS/ML 50 UNITS SUB-Q (08:51)
--- NOTE | 2023-05-30 10:21 | PM.IMPN ---
Progress Note: A&P Assessment and Plan (1) Stage 2 acute kidney injury: Code(s): N17.9 - Acute kidney failure, unspecified Status: Acute Assessment and Plan: Hx <1.0 SCr generally, greater than 2x baseline on arrival, now improving on IVF overnight. Cont. current. (2) Urinary tract infection: Qualifiers: Hematuria presence: without hematuria Urinary tract infection type: site unspecified Qualified Code(s): N39.0 - Urinary tract infection, site not specified Code(s): N39.0 - Urinary tract infection, site not specified Status: Acute Assessment and Plan: No history of frequent UTI. Question if UTI responsible for the n/v abdominal pain versus the ozempic. Culture is pending currently on Rocephin which will continue pending sensitivities. (3) Abdominal pain: Code(s): R10.9 - Unspecified abdominal pain Status: Acute Assessment and Plan: Improving. (4) Fatty liver: Code(s): K76.0 - Fatty (change of) liver, not elsewhere classified Status: Acute (5) Type 2 diabetes mellitus with hyperglycemia, with long-term current use of insulin: Code(s): E11.65 - Type 2 diabetes mellitus with hyperglycemia; Z79.4 - manager long term care (current) use of insulin Status: Acute Assessment and Plan: Currently on 50 units lantus daily. FBG 160 this am. (6) Nausea & vomiting: Code(s): R11.2 - Nausea with vomiting, unspecified Status: Acute Assessment and Plan: Resolved and tolerating diet. (7) BRAEDEN (obstructive sleep apnea): Code(s): G47.33 - Obstructive sleep apnea (adult) (pediatric) Status: Acute (8) GERD without esophagitis: Code(s): K21.9 - Gastro-esophageal reflux disease without esophagitis Status: Acute Assessment and Plan: Protonix BID currently ordered, if symptoms remain stable I would consider deescalation to daily tomorrow. Time Spent With Patient Time: >30 minutes with moderate decision making complexity Subjective Date/time seen: 05/30/23 10:21 Interval history: Neva Nguyễn is a 62 year old female who presents with n/v, abd. pain, and poor intake after starting Ozempic and completing her second dose of same. She does not have history of frequent UTI. She had suspicious UA which was collected on 6/28 and is set up for culture. There was coexisting BETH on arrival with SCr 2.2 on arrival with baseline known of generally <1.0. Today, she states she does not have dysuria but has noted some pruritic symptoms. She is not vomiting and has a fair appetite. Abdominal pain is improving. Review of Systems Review of Systems: Review of symptoms negative across 12 systems other than as noted in history. Exam Narrative: GENERAL APPEARANCE: Appears to be in no acute distress. HEAD: normocephalic atraumatic EYES: PERRL, EOMI. Vision grossly intact. ENT: Hearing grossly intact, no nasal discharge NECK: Neck supple, trachea midline. CARDIAC: Normal S1/S2. Rhythm is regular. No murmurs, rubs, or gallops. No cyanosis or pallor. Extremities are warm and well perfused. LUNGS: Clear to auscultation without rales, rhonchi, wheezing or diminished breath sounds. Respirations even and unlabored. ABDOMEN: BS positive x 4 quadrants. Soft, nondistended, nontender. No guarding or rebound. MSK: No joint tenderness/swelling, fair strength in all extremities. PERIPHERAL VASCULAR: Peripheral pulses palpable. Normal perfusion, cap refill <2 seconds. No edema. NEURO: Follows commands. No focal deficits. SKIN: [place] without lesions or eruptions. PSYCH: Stable, no paranoia or delusional thinking. Objective Data Vital Signs Vital Signs: Vital Signs - 24 hr 05/29/23 16:29 05/29/23 20:20 05/29/23 17:05 Temperature 97.7 F Pulse Rate 126 H 95 110 H Respiratory Rate 18 16 18 Blood Pressure 113/80 147/78 H 133/88 Pulse Oximetry 97 99 98 Oxygen Delivery Room Air 05/29/23 17:50 05/29/23 18:20 05/29
[2023-05-30 14:00] VITALS: BP 123/65; PULSE 88; RESP 16; TEMP 35.9; O2SAT 98
[2023-05-30 21:04] VITALS: BP 167/77; PULSE 78; RESP 20; TEMP 36.8; O2SAT 99
[2023-05-31] MEDS: SODIUM CHLORIDE 0.9% IV 1,000 ML 150 ML IV CONT (05:15)
[2023-05-31 06:00] VITALS: BP 172/91; PULSE 71; RESP 14; TEMP 37.1; O2SAT 98
[2023-05-31 06:08] LABS: Basophils Percent Auto 0.4 % (0.2-1.2); Eosinophils Absolute Auto 0.1 K/mm3 (0-0.3); Eosinophils Percent Auto 0.5 % (0-4.4); Hematocrit 40.2 % (37.0-47.0); Hemoglobin 12.8 g/dL (12.0-15.0); Immature Granulocyte Absolute 0.04 K/mm3 (0.00-0.031); Immature Granulocyte Percent A 0.4 % (0-0.5); Lymphocytes Absolute Auto 3.69 K/mm3 (0.9-3.2); Lymphocytes Percent Auto 38.4 % (18.3-44.2); Mean Corpuscular HGB Conc 31.8 g/dl (32-36); Mean Corpuscular Hemoglobin 29.2 pg (26-34); Mean Corpuscular Volume 91.6 fl (80-100); Monocytes Absolute Auto 0.5 K/mm3 (0.1-0.6); Neutrophils Absolute Auto 5.3 K/mm3 (1.3-6.7); Neutrophils Percent Auto 55.3 % (45.5-73.1); Platelet Count Result 259 k/mm3 (150-375); Red Blood Count 4.39 M/mm3 (4.2-5.4); Red Cell Distribution Width 12.9 % (11.5-14.5); White Blood Count 9.6 K/mm3 (4.5-10.0)
[2023-05-31 06:17] LABS: Alanine Aminotransferase 36 U/L (6-35); Albumin Level 3.9 g/dL (3.5-5.1); Alkaline Phosphatase 59 U/L (38-126); Anion Gap 6 mmol/L (8-16); Aspartate Amino Transferase 45 U/L (14-36); Bilirubin,Total 0.4 mg/dL (0.2-1.3); Blood Urea Nitrogen 19 mg/dL (7-17); Calcium 8.1 mg/dL (8.4-10.2); Carbon Dioxide 26 mmol/L (22-30); Chloride 111 mmol/L (98-107); Estimated CRCL calculation 47 ml/min; Estimated Glomerular Filt Rate 50; Glucose 106 mg/dL (65-110); Potassium 3.6 mmol/L (3.4-5.0); Sodium 143 mmol/L (137-145)
[2023-05-31 08:00] VITALS: PULSE 85; RESP 14; O2SAT 98
--- NOTE | 2023-05-31 08:17 | P.PNIM_ITS ---
Progress Note: A&P Assessment and Plan (1) Stage 2 acute kidney injury: Code(s): N17.9 - Acute kidney failure, unspecified Status: Acute Assessment and Plan: * BUN/Cr elevated upon arrival at 31/2.20 * Baseline creatinine is 0.70-1.00 * Current BUN/Cr 19/1.10 * Improved on NS, can probably DC'd at this time * avoid nephro toxic medications * trend BUN/Cr * Seems to be resolving * related to dehydration as she presented with nausea and vomiting (2) Urinary tract infection: Qualifiers: Hematuria presence: without hematuria Urinary tract infection type: site unspecified Qualified Code(s): N39.0 - Urinary tract infection, site not specified Code(s): N39.0 - Urinary tract infection, site not specified Status: Acute Assessment and Plan: * UA did appear abnormal * Culture came back contaminated * Change IV antibiotics to cefdinir * WBC trending down * Trend urine out put (3) Abdominal pain: Qualifiers: Abdominal location: unspecified location Qualified Code(s): R10.9 - Unspecified abdominal pain Code(s): R10.9 - Unspecified abdominal pain Status: Acute Assessment and Plan: * Improving. * CT of the abd/pel hepatic steatosis * Resolving (4) Fatty liver: Code(s): K76.0 - Fatty (change of) liver, not elsewhere classified Status: Acute Assessment and Plan: * CT of abd/pel showed Hepatic steatosis * LFTs slightly elevated * AST/ALT 45/36 * Continue to trend labs * Outpatient follow up (5) Type 2 diabetes mellitus with hyperglycemia, with long-term current use of insulin: Code(s): E11.65 - Type 2 diabetes mellitus with hyperglycemia; Z79.4 - residential (current) use of insulin Status: Acute Assessment and Plan: * Currently on 50 units lantus daily. * FBG 106 this am. * Continue to trend * Continue ISS * Accu cheks * Stable (6) Nausea & vomiting: Qualifiers: Vomiting type: unspecified Qualified Code(s): R11.2 - Nausea with vomiting, unspecified Code(s): R11.2 - Nausea with vomiting, unspecified Status: Acute Assessment and Plan: * Resolved and tolerating diet. (7) BRAEDEN (obstructive sleep apnea): Code(s): G47.33 - Obstructive sleep apnea (adult) (pediatric) Status: Acute Assessment and Plan: * Outpatient sleep study if indicated (8) GERD without esophagitis: Code(s): K21.9 - Gastro-esophageal reflux disease without esophagitis Status: Acute Assessment and Plan: * Protonix BID currently ordered * Changed to daily * stable Time Spent With Patient Time: 48 minutes Time with patient: Greater than 35 minutes Subjective Date/time seen: 05/31/23 08:17 Review of Systems Review of Systems: All systems reviewed & are unremarkable except as noted in HPI and below Exam Narrative: General: well-nourished, well-appearing 62-year-old female, sitting up in bed, comfortable, NARD Neuro: awake, alert and oriented x4, speech clear, no focal neuro deficits noted HEENMT: normocephal
--- NOTE | 2023-05-31 08:17 | PM.IMPN ---
Progress Note: A&P Assessment and Plan (1) Stage 2 acute kidney injury: Code(s): N17.9 - Acute kidney failure, unspecified Status: Acute Assessment and Plan: BUN/Cr elevated upon arrival at 31/2.20 Baseline creatinine is 0.70-1.00 Current BUN/Cr 19/1.10 Improved on NS, can probably DC'd at this time avoid nephro toxic medications trend BUN/Cr Seems to be resolving related to dehydration as she presented with nausea and vomiting (2) Urinary tract infection: Qualifiers: Hematuria presence: without hematuria Urinary tract infection type: site unspecified Qualified Code(s): N39.0 - Urinary tract infection, site not specified Code(s): N39.0 - Urinary tract infection, site not specified Status: Acute Assessment and Plan: UA did appear abnormal Culture came back contaminated Change IV antibiotics to cefdinir WBC trending down Trend urine out put (3) Abdominal pain: Qualifiers: Abdominal location: unspecified location Qualified Code(s): R10.9 - Unspecified abdominal pain Code(s): R10.9 - Unspecified abdominal pain Status: Acute Assessment and Plan: Improving. CT of the abd/pel hepatic steatosis Resolving (4) Fatty liver: Code(s): K76.0 - Fatty (change of) liver, not elsewhere classified Status: Acute Assessment and Plan: CT of abd/pel showed Hepatic steatosis LFTs slightly elevated AST/ALT 45/36 Continue to trend labs Outpatient follow up (5) Type 2 diabetes mellitus with hyperglycemia, with long-term current use of insulin: Code(s): E11.65 - Type 2 diabetes mellitus with hyperglycemia; Z79.4 - senior living (current) use of insulin Status: Acute Assessment and Plan: Currently on 50 units lantus daily. FBG 106 this am. Continue to trend Continue ISS Accu cheks Stable (6) Nausea & vomiting: Qualifiers: Vomiting type: unspecified Qualified Code(s): R11.2 - Nausea with vomiting, unspecified Code(s): R11.2 - Nausea with vomiting, unspecified Status: Acute Assessment and Plan: Resolved and tolerating diet. (7) BRAEDEN (obstructive sleep apnea): Code(s): G47.33 - Obstructive sleep apnea (adult) (pediatric) Status: Acute Assessment and Plan: Outpatient sleep study if indicated (8) GERD without esophagitis: Code(s): K21.9 - Gastro-esophageal reflux disease without esophagitis Status: Acute Assessment and Plan: Protonix BID currently ordered Changed to daily stable Time Spent With Patient Time: 48 minutes Time with patient: Greater than 35 minutes Subjective Date/time seen: 05/31/23 08:17 Review of Systems Review of Systems: All systems reviewed & are unremarkable except as noted in HPI and below Exam Narrative: General: well-nourished, well-appearing 62-year-old female, sitting up in bed, comfortable, NARD Neuro: awake, alert and oriented x4, speech clear, no focal neuro deficits noted HEENMT: normocephalic, atraumatic, EOMI, sclerae anicteric, moist oral mucosa Respiratory: Clear to auscultation bilaterally without crackles, rhonchi or wheezes, nonlabored breathing Cardio: regular rate, regular rhythm with S1-S2 Abdomen: nondistended, normoactive bowel sounds, soft, nontender to palpation Extremities: no edema, erythema, or tenderness to palpation, DP pulses 2+ bilaterally Skin: no rashes or lesions, warm and dry Psych: appropriate mood and affect, judgment and insight intact Objective Data Vital Signs Vital Signs: Vital Signs - 24 hr 05/30/23 14:00 05/30/23 21:04 05/30/23 20:00 Temperature 96.7 F L 98.2 F Pulse Rate 88 78 Respiratory Rate 16 20 Blood Pressure 123/65 167/77 H Pulse Oximetry 98 99 Oxygen Delivery Ro
[2023-05-31 09:44] VITALS: PULSE 85
[2023-05-31] MEDS: PANTOPRAZOLE 40 MG TABLET PO (09:44)
[2023-05-31] MEDS: CEFDINIR 300 MG CAPSULE PO (09:44)
[2023-05-31] MEDS: METOPROLOL SUCCINATE EXT REL 100 MG TABCR 200 MG PO (09:44)
[2023-05-31] MEDS: GABAPENTIN 300 MG CAPSULE PO ×2 (09:44→15:46)
[2023-05-31] MEDS: INSULIN GLARGINE (*BKC) 100 UNITS/ML 50 UNITS SUB-Q (09:44)
[2023-05-31] MEDS: amLODIPine BESYLATE 5 MG TABLET 10 MG PO (09:45)
[2023-05-31] MEDS: ENOXAPARIN 30 MG/0.3 ML SYRINGE SUB-Q (09:45)
--- NOTE | 2023-05-31 11:00 | PM.DS ---
DS: Admitting Diagnosis Discharge Date 05/31/23 1100 Admitting Diagnosis UTI, BETH DS: Discharge Diagnosis Discharge Diagnosis (1) Stage 2 acute kidney injury: Code(s): N17.9 - Acute kidney failure, unspecified Status: Acute Assessment and Plan: BUN/Cr elevated upon arrival at 31/2.20 Baseline creatinine is 0.70-1.00 Current BUN/Cr 19/1.10 Improved on NS, can probably DC'd at this time avoid nephro toxic medications trend BUN/Cr Seems to be resolving related to dehydration as she presented with nausea and vomiting (2) Urinary tract infection: Qualifiers: Hematuria presence: without hematuria Urinary tract infection type: site unspecified Qualified Code(s): N39.0 - Urinary tract infection, site not specified Code(s): N39.0 - Urinary tract infection, site not specified Status: Acute Assessment and Plan: UA did appear abnormal Culture came back contaminated Change IV antibiotics to cefdinir WBC trending down Trend urine out put (3) Abdominal pain: Qualifiers: Abdominal location: unspecified location Qualified Code(s): R10.9 - Unspecified abdominal pain Code(s): R10.9 - Unspecified abdominal pain Status: Acute Assessment and Plan: Improving. 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 FBG 106 this am. Continue to trend Continue ISS Accu cheks Stable Patient did have a some moments about how she is not able to get this under control. She stated that she is always hungry and is unable to feel satisfied. staff educator came to talk to her. will start her on Victoza, instead of the Ozempic. Will also increase her metformin to BID (6) Nausea & vomiting: Qualifiers: Vomiting type: unspecified Qualified Code(s): R11.2 - Nausea with vomiting, unspecified Code(s): R11.2 - Nausea with vomiting, unspecified Status: Acute Assessment and Plan: Resolved and tolerating diet. (7) BRAEDEN (obstructive sleep apnea): Code(s): G47.33 - Obstructive sleep apnea (adult) (pediatric) Status: Acute Assessment and Plan: Outpatient sleep study if indicated (8) GERD without esophagitis: Code(s): K21.9 - Gastro-esophageal reflux disease without esophagitis Status: Acute Assessment and Plan: Protonix BID currently ordered Changed to daily stable DS: Summary Hospital Course Hospital Course: Patient is 62-year-old female with a past medical history of diabetes, hypertension, UTI who presented to the ED with complaints of nausea vomiting abdominal pain. Upon arrival was noted the patient was an BETH with BUN of 31 creatinine of 2.2. Urinalysis did appear infectious however culture came back as contamination. Patient was started on IV ceftriaxone which has been converted to cefdinir at this time. CT of the abdomen pelvis did show hepatic stenosis which is a chronic finding for this patient. Nausea vomiting has resolved and patient is eating and tolerating a diet. Will continue antibiotics for now. Patient is doing better in general in her creatinine is back to baseline at 1.10. Patient also denies any current complaints including chest pain, shortness a breath, nausea, vo
--- NOTE | 2023-05-31 11:00 | P.DS_ITS ---
DS: Admitting Diagnosis Discharge Date 05/31/23 1100 Admitting Diagnosis UTI, BETH DS: Discharge Diagnosis Discharge Diagnosis (1) Stage 2 acute kidney injury: Code(s): N17.9 - Acute kidney failure, unspecified Status: Acute Assessment and Plan: * BUN/Cr elevated upon arrival at 31/2.20 * Baseline creatinine is 0.70-1.00 * Current BUN/Cr 19/1.10 * Improved on NS, can probably DC'd at this time * avoid nephro toxic medications * trend BUN/Cr * Seems to be resolving * related to dehydration as she presented with nausea and vomiting (2) Urinary tract infection: Qualifiers: Hematuria presence: without hematuria Urinary tract infection type: site unspecified Qualified Code(s): N39.0 - Urinary tract infection, site not specified Code(s): N39.0 - Urinary tract infection, site not specified Status: Acute Assessment and Plan: * UA did appear abnormal * Culture came back contaminated * Change IV antibiotics to cefdinir * WBC trending down * Trend urine out put (3) Abdominal pain: Qualifiers: Abdominal location: unspecified location Qualified Code(s): R10.9 - Unspecified abdominal pain Code(s): R10.9 - Unspecified abdominal pain Status: Acute Assessment and Plan: * Improving. * CT of the abd/pel hepatic steatosis * Resolving (4) Fatty liver: Code(s): K76.0 - Fatty (change of) liver, not elsewhere classified Status: Acute Assessment and Plan: * CT of abd/pel showed Hepatic steatosis * LFTs slightly elevated * AST/ALT 45/36 * Continue to trend labs * Outpatient follow up (5) Type 2 diabetes mellitus with hyperglycemia, with long-term current use of insulin: Code(s): E11.65 - Type 2 diabetes mellitus with hyperglycemia; Z79.4 - long-term (current) use of insulin Status: Acute Assessment and Plan: * Currently on 50 units lantus daily. * FBG 106 this am. * Continue to trend * Continue ISS * Accu cheks * Stable Patient did have a some moments about how she is not able to get this under control. She stated that she is always hungry and is unable to feel satisfied. oil sales and service rep came to talk to her. will start her on Victoza, instead of the Ozempic. Will also increase her metformin to BID (6) Nausea & vomiting: Qualifiers: Vomiting type: unspecified Qualified Code(s): R11.2 - Nausea with vomiting, unspecified Code(s): R11.2 - Nausea with vomiting, unspecified Status: Acute Assessment and Plan: * Resolved and tolerating diet. (7) BRAEDEN (obstructive sleep apnea): Code(s): G47.33 - Obstructive sleep apnea (adult) (pediatric) Status: Acute Assessment and Plan: * Outpatient sleep study if indicated (8) GERD without esophagitis: Code(s): K21.9 - Gastro-esophageal reflux disease without esophagitis Status: Acute Assessment and Plan: * Protonix BID currently ordered * Changed to daily * stable DS: Summary Hospital Course Hospital Course: Patient is 62-year-old female with a past medical history of diabetes, hypertension, UTI who pres
[2023-05-31 13:31] VITALS: BMI 34.9
[2023-05-31 13:55] VITALS: BP 142/84; PULSE 68; RESP 20; TEMP 37; O2SAT 99
[2023-05-31 15:24] LABS: Cholesterol 122 mg/dL (0-200); HDL Direct 40 mg/dL; Triglycerides 220 mg/dL (<150)
[2023-05-31 15:35] LABS: LDL Cholesterol Direct 56 mg/dL
== END 2023-05-31 15:45 | disposition home or self-care (01) ==
LOC: ANHED 19:04 → ANH3MEDSUR 20:31
PROVIDERS: Nurse Practitioner; Nurse Practitioner Family; Admitting Provider Internal Medicine; Emergency Provider Emergency Medicine; Visit Provider Chiropractor
DX: N17.9 Acute kidney failure, unspecified (principal); N39.0 Urinary tract infection, site not specified; R10.9 Unspecified abdominal pain; K76.0 Fatty (change of) liver, not elsewhere classified; I10 Essential (primary) hypertension; E11.40 Type 2 diabetes mellitus with diabetic neuropathy, unspecified; E11.65 Type 2 diabetes mellitus with hyperglycemia; R11.2 Nausea with vomiting, unspecified; G47.33 Obstructive sleep apnea (adult) (pediatric); K21.9 Gastro-esophageal reflux disease without esophagitis; M81.0 Age-related osteoporosis without current pathological fracture; E78.5 Hyperlipidemia, unspecified; R00.1 Bradycardia, unspecified; E86.0 Dehydration; R94.31 Abnormal electrocardiogram [ECG] [EKG]; Z79.4 Long term (current) use of insulin; Z87.891 Personal history of nicotine dependence; Z82.49 Family history of ischemic heart disease and other diseases of the circulatory system; Z83.3 Family history of diabetes mellitus
CPT/HCPCS: 36415; 74176; 80048; 80053; 80061; 81001; 83690; 83735; 84100; 84484; 85025; 87086; 87088; 93005; 96361; 96365; 96372; 96375; 96376; 99285; A9270; G0378; J0696; J1650; J1815; J7030

== ENCOUNTER 2023-06-27 13:49 | Outpatient (RCR) | payer BC, SELFPAY ==
[2023-06-27 14:39] VITALS: BMI 35.2
[2023-06-27 15:00] VITALS: BMI 35.2
== END 2023-09-16 11:10 | disposition home or self-care (01) ==
LOC: ANHDMC 13:49
PROVIDERS: Visit Provider Internal Medicine Endocrinology, Diabetes & Metabolism
DX: E11.65 Type 2 diabetes mellitus with hyperglycemia (principal); E11.42 Type 2 diabetes mellitus with diabetic polyneuropathy; Z79.4 Long term (current) use of insulin; Z71.3 Dietary counseling and surveillance
CPT/HCPCS: 97802

== ENCOUNTER 2023-07-24 14:30 | Outpatient (RCR) | payer BC, SELFPAY | END 2023-09-16 11:07 | disposition home or self-care (01) | LOC: ANHDMC 14:30 | PROVIDERS: Visit Provider Internal Medicine Endocrinology, Diabetes & Metabolism | DX: E11.9 Type 2 diabetes mellitus without complications (principal); Z79.4 Long term (current) use of insulin; Z71.89 Other specified counseling | CPT/HCPCS: G0108; G0109 ==

== ENCOUNTER 2023-08-28 14:52 | Outpatient (RCR) | payer MEDICARE, BC, SELFPAY ==
[2023-08-28 17:21] LABS: Anion Gap 10 mmol/L (8-16); Blood Urea Nitrogen 18 mg/dL (7-17); Calcium 9.5 mg/dL (8.4-10.2); Carbon Dioxide 27 mmol/L (22-30); Chloride 103 mmol/L (98-107); Estimated Glomerular Filt Rate > 60; Glucose 83 mg/dL (65-110); Potassium 3.3 mmol/L (3.4-5.0); Sodium 140 mmol/L (137-145)
== END 2023-11-26 23:59 | disposition home or self-care (01) ==
LOC: ANHWCLAB 14:52
PROVIDERS: Visit Provider Internal Medicine Endocrinology, Diabetes & Metabolism
DX: E11.65 Type 2 diabetes mellitus with hyperglycemia (principal); Z79.4 Long term (current) use of insulin
CPT/HCPCS: 36415; 80048

== ENCOUNTER 2025-05-24 09:30 | Outpatient (CLI) | payer MEDICARE, SELFPAY ==
[2025-05-24 10:14] LABS: Prothrombin Time 13.4 Seconds (11.1-14.7)
[2025-05-24 10:32] LABS: Anion Gap 12 mmol/L (4-12); Blood Urea Nitrogen 13 mg/dL (7-17); Calcium 9.4 mg/dL (8.4-10.2); Carbon Dioxide 25 mmol/L (22-30); Chloride 99 mmol/L (98-107); Estimated Glomerular Filt Rate 51; Glucose 293 mg/dL (65-110); Potassium 3.9 mmol/L (3.4-5.0); Sodium 136 mmol/L (137-145)
== END 2025-05-24 09:31 | disposition home or self-care (01) ==
LOC: ANHSURGERY 09:34
PROVIDERS: Anesthesiology; PCP Physician Assistant; Visit Provider Urology
DX: E11.65 Type 2 diabetes mellitus with hyperglycemia (principal); N17.9 Acute kidney failure, unspecified
CPT/HCPCS: 36415; 80048; 85610; 85730

== ENCOUNTER 2025-05-28 00:35 | Day surgery (SDC) | payer MEDICARE, SELFPAY ==
[2025-05-19 12:48] VITALS: BMI 36.3
--- NOTE | 2025-05-19 12:59 | PC.NURSE ---
Report to the Outpatient Waiting Room, entrance under the green pavilion located off [facility], at time ____0915am___ on date __ 05/28/25 . Planned Procedure Time: _1115am .? Time changes happen often and if your time is changed the preop area will call you the afternoon before. - You and your visitor will be asked to self-screen and do not enter if you have any COVID symptoms. Please call surgeon if you need to reschedule. - A mask is optional within the hospital at this time. Patients may have clear liquids (water, carbonated beverages, clear teas, apple juice) until 3 hours prior to surgery with a maximum of 20 ounces. - No food from midnight until time of surgery and no smoking, or chewing tobacco (or any form of nicotine). No chewing gum, candy or mints. (0815am) Take only the following medications with a SIP of water on the morning of surgery: ____Amlodipine, Tylenol DO NOT STOP ANY OF YOUR OTHER PRESCRIPTION MEDICATIONS PRIOR TO SURGERY EXCEPT THE FOLLOWING Hold all vitamins and supplements for days per anesthesiologist. Medications to discontinue per physician None Date to take last dose___None Please no make-up, nail niuean, hairspray, perfume, deodorant, or body powder the day of surgery.? No jewelry (including any body piercings) or valuables the day of surgery, leave them at home.? Please take a shower or bath the night before, or the morning of, surgery with an antibacterial soap.? Wear comfortable, loose fitting clothing.? - Jewelry must be removed prior to entering the operating room.? Rings and piercings that are not removed may be cut off. - The hospital will not accept responsibility for valuables.? - Please leave all valuables, including medications, at home the day of surgery. If you are going home after surgery, a licensed coach tour driver must drive you home.? - NO public transportation without another adult if you receive anesthesia. - We recommend that an adult stay with you for 24 hours following discharge. - We also recommend that you do not drive, make important decision, drink alcoholic beverages, or take any drugs that were not prescribed by your health care provider for at least 24 hours after your discharge time. Follow any additional instructions given to you from your surgeon. Telephone instructions given to _Patient and asked if any additional questions and then verbalized understanding. Patient advised to call surgeon office or pre surgery nurse liaison [phone] if any additional questions.
--- NOTE | 2025-05-27 15:22 | P.PNAN_ITS ---
Anes - Initial Pre Proc Eval Procedure: Operation Date: 05/28/25 11:15 Proposed Procedures p Urethral Sling - Ronnie Pike MD Date/Time: 05/27/25 15:22 Surgeon: Ronnie Pike MD Pre Op Diagnosis: stress incontinence Patient Data Age: 64 Gender: F Height: 1.57 m Weight: 90 kg Allergies Allergy/AdvReac Type Severity Reaction Status Date / Time semaglutide (From OzempGreengate Power) AdvReac Intermediate vomitting Verified 05/28/25 10:58 Home Medications ?Medication ?Instructions ?Recorded ?Confirmed ?Type omeprazole 40 mg capsule,delayed 40 mg PO DAILY #90 caps 03/26/23 05/19/25 Rx release blood-glucose,thread pulling machine attendant,cont #1 ea 12/10/24 04/14/25 Rx (Dexcom G7 Grab Jack Worker) amlodipine 10 mg tablet (Norvasc) 10 mg PO DAILY #90 tabs 04/14/25 05/28/25 Rx cholecalciferol (vitamin D3) 1,250 1,250 mcg PO WEEKLY #14 tabs 04/14/25 05/19/25 Rx mcg (50,000 unit) tablet lisinopril 20 mg tablet 20 mg PO DAILY #90 tabs 04/14/25 05/19/25 Rx pen needle, diabetic 32 gauge x #200 ea 04/14/25 04/14/25 Rx / rosuvastatin 40 mg tablet 40 mg PO DAILY #90 tabs 04/14/25 05/19/25 Rx blood-glucose sensor (Dexcom G7 #9 ea 04/19/25 05/19/25 Rx Sensor device) insulin regular hum U-500 conc 500 See Rx Instructions .Route 05/13/25 05/28/25 Rx unit/mL(3 mL) subcut pen (Humulin .COMPLEX #27 mL R U-500 (Conc) Insulin Kwikpen) oxybutynin chloride 10 mg 10 mg PO .day 05/19/25 05/19/25 History tablet,extended release 24 hr hydrocodone 5 mg-acetaminophen 325 1 tablet PO Q6H PRN pain #20 tabs 05/28/25 Rx mg tablet Patient hx anesthesia problems: none Family hx anesthesia problems: none Results Review: All pre-operative results and documents have been reviewed as part of the pre- operative evaluation. [facility] Past Medical History Medical History Hypersomnolence Body mass index (BMI) 35 or more (02/25/18) Stage 2 acute kidney injury Fatty liver Post-menopausal Type 2 diabetes mellitus with hyperglycemia, with long-term current use of insulin Family history of hemochromatosis Lactic acidosis Leukocytosis DKA (diabetic ketoacidosis) Hyperlipidemia Hypokalemia History of acute renal failure 2014. Required temporary dialysis BRAEDEN (obstructive sleep apnea) Untreated Diabetic peripheral neuropathy associated with type 2 diabetes mellitus GERD without esophagitis IDDM (insulin dependent diabetes mellitus) Essential (primary) hypertension Onset 07/03/17 Osteopenia Onset 02/25/19 History of hypertension History of gastroesophageal reflux (GERD) Hx of cyst of breast Benign Hx of osteoporosis 01/2012 Hx of diabetic neuropathy 05/2015 Surgical History Surgical History History of tubal ligation 1985 History of tonsillectomy (~1963) Hx of removal of cyst (~1997) breast Family History Family History Mother Hypertension Family history of hemochromatosis Father Hypertension Family history of gastrointestinal disorder Family history of diabetes mellitus in first degree relative Sibling Family history of malignant neoplasm of cervix Social History Social History Social History: Ms. Nguyễn lives at home with her . She is independent in her daily activities. She works for [employer] and today was her last day of she is retiring. Her PCP is Dr. Bermudez. She designates her , Nikhil, as her surrogate decision maker and she would like to be a full code. Code status full code Smoking packs per day: 0.5 Smoking cigarettes per day: 10.0 Years smoked: 7 Smoking pack-years: 3.50 Smoking status: Former smoker Tobacco type: cigarettes Smoking end date: 12/02/81 Alcohol intake: never Substance use: never Substance use type: marijuana Other substance usage details: edible marijuana Do You Feel Safe in your Home?: Yes Lack of Transportation: No Lack of Food: Never True Current Housing: I Have Housing Concerned About Future Housing: No Difficulty Paying Gas/Electric Bills: No Difficulty Paying for Meds: No Currently Unemployed: No Education: Associate Degree Difficulty w/ Childcare or Family Care: No Living arrangements: with family Occupation/Education: retired Gender identity (if verbalized by the patient): Female Sexual Orientation (if Verbalized by the Patient): Straight or Heterosexual Spiritual care concerns: No Agree to blood products: Yes Anes - Eval Final PreProcedure Day of Procedure 05/27/25 15:22 Patient weight: obese Heart: regular rate and rhythm Lungs: clear to auscultation Airway: Mallampati scale class II Neurological: alert and oriented Last oral intake: >/= 8 hours ASA classification: III Emergent: no Anesthetic plan: proceed Anesthesia type and monitoring: general LMA and standard monitoring Results Review: All pre-operative results and documents have been reviewed as part of the pre- operative evaluation. Informed Consent: The patient's anesthetic plan and its attendant risks and benefits were discussed with the patient/family/POA. Questions were solicited and answers provided to the satisfaction of the patient/family/POA.
[2025-05-28] VITALS (8 sets, daily range): BP systolic 105–148; BP diastolic 63–86; PULSE 65–81; RESP 16–18; TEMP 37.1–37.4; O2SAT 96–100
--- NOTE | 2025-05-28 04:54 | P.HP_ITS ---
H&P: HPI History of Present Illness Date/Time: 05/28/25 04:54 Chief Complaint: Mixed UI Narrative: Mixed UI. ON meds for OAB. Sling for EUSEBIA Review of Systems Review of Systems: All systems reviewed & are unremarkable except as noted in HPI and below PMFSH Past Medical History Medical History Hypersomnolence Body mass index (BMI) 35 or more (02/25/18) Stage 2 acute kidney injury Fatty liver Post-menopausal Type 2 diabetes mellitus with hyperglycemia, with long-term current use of insulin Family history of hemochromatosis Lactic acidosis Leukocytosis DKA (diabetic ketoacidosis) Hyperlipidemia Hypokalemia History of acute renal failure 2014. Required temporary dialysis BRAEDEN (obstructive sleep apnea) Untreated Diabetic peripheral neuropathy associated with type 2 diabetes mellitus GERD without esophagitis IDDM (insulin dependent diabetes mellitus) Essential (primary) hypertension Onset 07/03/17 Osteopenia Onset 02/25/19 History of hypertension History of gastroesophageal reflux (GERD) Hx of cyst of breast Benign Hx of osteoporosis 01/2012 Hx of diabetic neuropathy 05/2015 Surgical History Surgical History History of tubal ligation 1985 History of tonsillectomy (~1963) Hx of removal of cyst (~1997) breast Family History Family History Mother Hypertension Family history of hemochromatosis Father Hypertension Family history of gastrointestinal disorder Family history of diabetes mellitus in first degree relative Sibling Family history of malignant neoplasm of cervix Social History Social History Social History: Ms. Nguyễn lives at home with her . She is independent in her daily activities. She works for [employer] and today was her last day of she is retiring. Her PCP is Dr. Bermudez. She designates her , Nikhil, as her surrogate decision maker and she would like to be a full code. Code status full code Smoking packs per day: 0.5 Smoking cigarettes per day: 10.0 Years smoked: 7 Smoking pack-years: 3.50 Smoking status: Former smoker Tobacco type: cigarettes Smoking end date: 12/02/81 Alcohol intake: never Substance use: never Substance use type: marijuana Other substance usage details: edible marijuana Do You Feel Safe in your Home?: Yes Lack of Transportation: No Lack of Food: Never True Current Housing: I Have Housing Concerned About Future Housing: No Difficulty Paying Gas/Electric Bills: No Difficulty Paying for Meds: No Currently Unemployed: No Education: Associate Degree Difficulty w/ Childcare or Family Care: No Living arrangements: with family Occupation/Education: retired Gender identity (if verbalized by the patient): Female Sexual Orientation (if Verbalized by the Patient): Straight or Heterosexual Spiritual care concerns: No Agree to blood products: Yes Meds Home Medications and Allergies Home Medications ?Medication ?Instructions ?Recorded ?Confirmed ?Type omeprazole 40 mg capsule,delayed 40 mg PO DAILY #90 caps 03/26/23 05/19/25 Rx release blood-glucose,network security engineer,cont #1 ea 12/10/24 04/14/25 Rx (Dexcom G7 Moving Picture Operator) amlodipine 10 mg tablet (Norvasc) 10 mg PO DAILY #90 tabs 04/14/25 05/19/25 Rx cholecalciferol (vitamin D3) 1,250 1,250 mcg PO WEEKLY #14 tabs 04/14/25 05/19/25 Rx mcg (50,000 unit) tablet lisinopril 20 mg tablet 20 mg PO DAILY #90 tabs 04/14/25 05/19/25 Rx pen needle, diabetic 32 gauge x #200 ea 04/14/25 04/14/25 Rx 5/32 rosuvastatin 40 mg tablet 40 mg PO DAILY #90 tabs 04/14/25 05/19/25 Rx blood-glucose sensor (Dexcom G7 #9 ea 04/19/25 05/19/25 Rx Sensor device) insulin regular hum U-500 conc 500 See Rx Instructions .Route 05/13/25 05/19/25 Rx unit/mL(3 mL) subcut pen (Humulin .COMPLEX #27 mL R U-500 (Conc) Insulin Kwikpen) oxybutynin chloride 10 mg 10 mg PO .day 05/19/25 05/19/25 History tablet,extended release 24 hr Allergies Allergy/AdvReac Type Severity Reaction Status Date / Time semaglutide (From Ozempic) AdvReac Intermediate vomitting Verified 05/19/25 12:43 Exam Narrative: + urethral mobility Assessment and Plan Assessment and plan (1) EUSEBIA (stress urinary incontinence, female): Code(s): N39.3 - Stress incontinence (female) (male) Status: Acute Assessment and Plan: Urethral sling
--- NOTE | 2025-05-28 04:55 | WPDHPUPDATE1 ---
History and Physical Update Update Date/Time: 05/28/25 04:55 History and Physical has been reviewed, including an updated exam of the patient. There are NO changes in the patient's condition. Risks, benefits, and alternatives have been discussed and questions answered. Patient agrees to proceed with procedure.
[2025-05-28 10:13] LABS: Glucose Point of Care 150 mg/dl (65-105)
[2025-05-28] MEDS: LACTATED RINGERS 1,000 ML 30 ML IV CONT (10:57)
[2025-05-28] MEDS: BUPIVACAINE/EPINEPHRINE 0.5% 50 ML VIAL 30 ML INFILTRATE (11:20)
[2025-05-28] MEDS: ceFAZolin 2 GM/D5W 50 ML 2 GM/50 ML BAG IVPB (11:20)
--- NOTE | 2025-05-28 11:50 | W.PM.PROC2 ---
Procedure Note - Detailed Date of Procedure 05/28/25 Pre-op Diagnosis stress incontinence Post-op Diagnosis Same Procedure Performed mid urethral sling cystoscopy Surgeon Ronnie Pike MD Anesthesia General Indications This is a female with confirm stress urinary incontinence. She desires surgical correction. She understands the risks of bleeding, infection, injury to the urinary tract, vaginal mesh extrusion, urinary tract mesh erosion, obstructive voiding requiring a secondary procedure, hip and leg pain, dyspareunia, inability to improve overactive bladder symptoms. She agrees to proceed. Description of Procedure She was correctly identified. Informed consent obtained. She was brought the operating room. She was given appropriate anesthesia. She was given appropriate perioperative antibiotics. A time-out performed. I marked out the site of the inner thigh incisions. I anesthetized the skin and made those incisions. I anesthetized the anterior vaginal wall over the mid urethra. I made a 1 cm incision. I dissected out laterally taking great care not to injure the refilled vaginal wall. Dissection was a bit more difficult due to her body habitus as was the trocar passage. I passed the helical trocars. First on the left. Then on the right. I did this from the thigh incision towards the vaginal incision. The sling was connected to the trocars and brought out through the thigh incision. I tensioned the sling appropriately. I cut and the plastic sheaths. I then closed the incision with 2 0 Vicryl. On cystoscopy there is no tumors or surgical artifact. There was no surgical artifact in the urethra. I cut the excess sling material. Close incisions with glue. She was awakened and transferred to the PACU in stable condition. Implants Urethral sling Drains No Packing No Pathology None sent Complications No immediate complications Condition Stable Disposition PACU
[2025-05-28 12:25] LABS: Glucose Point of Care 123 mg/dl (65-105)
[2025-05-28] MEDS: oxyCODONE HCL (*CRX) 5 MG TAB IR PO (13:12)
== END 2025-05-28 13:54 | disposition home or self-care (01) ==
PROVIDERS: PCP Physician Assistant; Visit Provider Urology
PROC: (CPT 57288; principal; 2025-05-28 11:15)
DX: N39.3 Stress incontinence (female) (male) (principal); E78.5 Hyperlipidemia, unspecified; I10 Essential (primary) hypertension; G47.10 Hypersomnia, unspecified; N17.9 Acute kidney failure, unspecified; E11.65 Type 2 diabetes mellitus with hyperglycemia; E11.10 Type 2 diabetes mellitus with ketoacidosis without coma; E11.42 Type 2 diabetes mellitus with diabetic polyneuropathy; E87.6 Hypokalemia; G47.33 Obstructive sleep apnea (adult) (pediatric); K21.9 Gastro-esophageal reflux disease without esophagitis; M81.0 Age-related osteoporosis without current pathological fracture; D72.829 Elevated white blood cell count, unspecified; M85.88 Other specified disorders of bone density and structure, other site; F12.90 Cannabis use, unspecified, uncomplicated; E66.9 Obesity, unspecified; Z68.37 Body mass index [BMI] 37.0-37.9, adult; Z79.4 Long term (current) use of insulin; Z79.891 Long term (current) use of opiate analgesic; Z98.890 Other specified postprocedural states; Z98.51 Tubal ligation status; Z87.891 Personal history of nicotine dependence; Z80.49 Family history of malignant neoplasm of other genital organs
CPT/HCPCS: 57288; 82948; A9270; C1771; J0690; J1885; J2003; J2250; J2405; J2704; J3010; J7120

== ENCOUNTER 2025-09-13 13:09 | Outpatient (CLI) | payer MEDICARE, SELFPAY ==
--- NOTE | ~2025-09-13 | US_ITS ---
EXAMINATION: US renal BI DATE: 09/13/2025 13:43 INDICATION: Abnormal results of kidney function studies. TECHNIQUE: Multiple ultrasound grayscale images of the kidneys were obtained. COMPARISON: CT abdomen and pelvis 05/29/2023, 08/09/22 FINDINGS: The right kidney measures 11.1 x 5.3 x 6.6 cm. The left kidney measures 11.2 x 4.7 x 5.2 cm. The kidneys demonstrate normal parenchymal echogenicity. There is a 13 mm hyperechoic mass in right kidney lower pole correlating with a hemorrhagic cyst by CT. There is no hydronephrosis. The bladder is normal. IMPRESSION: 1. Normal kidney sizes. No hydronephrosis. Reviewed, dictated and finalized at location E.
== END 2025-09-13 13:10 | disposition home or self-care (01) ==
LOC: MICIMG 13:09
PROVIDERS: PCP Physician Assistant; Visit Provider Internal Medicine Nephrology
DX: R94.4 Abnormal results of kidney function studies (principal); N28.89 Other specified disorders of kidney and ureter
CPT/HCPCS: 76770

== ENCOUNTER 2025-10-08 09:17 | Outpatient (CLI) | payer MEDICARE, SELFPAY ==
--- NOTE | ~2025-10-08 | DEXA_ITS ---
Bone Density Report Name: DUDLEY IBARRA Age: 65 Sex: Female Ethnicity: White Date of : 1960 Indication: osteopenia; Referring Provider: Nayla Garcia Study: Bone densitometry was performed. Exam Date: October 08, 2025 Accession number: [id number] Bone Density: Region BMD T-score Z-score Classification AP Spine(L1-L4) 0.918 -1.2 0.7 Osteopenia Femoral Neck (Left) 0.653 -1.8 -0.1 Osteopenia Total Hip (Left) 0.888 -0.4 0.9 Normal Femoral Neck (Right) 0.679 -1.5 0.1 Osteopenia Total Hip (Right) 0.899 -0.4 1.0 Normal Total Hip Mean 0.893 -0.4 1.0 Normal World Health Organization criteria for BMD impression classify patients as: Normal (T-score at or above -1.0), Osteopenia (T-score between -1.0 and -2.5), or Osteoporosis (T-score at or below -2.5). 10-year Fracture Risk(1): Major Osteoporotic Fracture 9.2% Hip Fracture 1.2% Reported Risk Factors: [place] (), Neck BMD=0.653, BMI=37.1 (1) FRAX(R) Version 3.08. Fracture probability calculated for an untreated patient. Fracture probability may be lower if the patient has received treatment. Previous Exams: -- Region Exam Age BMD T-score BMD Change BMD Change Date g/cm2 vs Baseline vs Previous -- AP Spine (L1-L4) 10/08/2025 65 0.918 -1.2 -8.3%# -8.3%# 12/11/2011 51 1.001 -0.4 Total Hip(Left) 10/08/2025 65 0.888 -0.4 7.1%# 7.1%# 12/11/2011 51 0.829 -0.9 Total Hip(Right) 10/08/2025 65 0.899 -0.4 12.8%# 12.8%# 12/11/2011 51 0.797 -1.2 -- *Denotes significance at 95% confidence level, LSC for AP Spine = 0.022 g/cm2, LSC for Total Hip = 0.027 g/cm2 # Denotes dissimilar scan types or analysis methods Clinical Information Provided by Patient: Has used the following medications: Vitamin D Patient maximum height was 62 Menopause Age: 51 No regular weight bearing exercise Onset of menses at age 10 Number of children 2 Impression: The patient has low bone mass, based on the Left Femoral Neck T-score. The patient has an estimated ten-year risk of hip fracture of 1.2% and an estimated ten-year risk of major fracture of 9.2%, based on the WHO FRAX algorithm. Unable to evaluate interval change due to the use of different scan modes. Discussion: BONE DENSITY IS LOW AT ONE OR MORE SKELETAL SITES. This patient's lowest T-score is low at one or more skeletal sites. It meets the World Health Organization's (WHO) criteria for ?low bone mass? (T-score between -1.0 and -2.5). The patient's 10-year risk of fracture as calculated by FRAX is less than the threshold where pharmacological therapy is recommended by the National Osteoporosis Foundation (NOF). However, all treatment decisions require clinical judgment and consideration of individual patient factors, including patient preferences, comorbidities, previous drug use, risk factors not captured in the FRAX model (e.g., frailty, falls, vitamin D deficiency, increased bone turnover, interval significant decline in bone density) and possible under or overestimation of fracture risk by FRAX. The patient should follow a healthful lifestyle (good nutrition with adequate calcium and vitamin D, and appropriate weight-bearing exercise). Follow-Up: Consider repeating this study in 2 to 3 years to reassess this patient's status, or sooner if there is some new clinical indication. Reported by: MATTIE on 10/08/2025 9:38:00 AM. Reviewed, dictated and finalized at location A.
== END 2025-10-08 09:18 | disposition home or self-care (01) ==
LOC: MICIMG 09:19
PROVIDERS: PCP Physician Assistant; Visit Provider Internal Medicine Nephrology
DX: Z78.0 Asymptomatic menopausal state (principal); M85.88 Other specified disorders of bone density and structure, other site; M85.852 Other specified disorders of bone density and structure, left thigh; M85.851 Other specified disorders of bone density and structure, right thigh
CPT/HCPCS: 77080

== ENCOUNTER 2025-10-27 01:03 | Day surgery (SDC) | payer MEDICARE, SELFPAY ==
[2025-10-12 10:35] VITALS: BMI 36.6
--- OUTSIDE RECORDS SUMMARY | 2025-10-27 01:06 | XMS_ITS | Encounter Summary ---
Author Organization [facility] Address [address] [place] [address] Care Team Providers Care Pricing Actuary Name Role Phone Del Zarate MD Primary Care Provider [phone] Kika Bermudez MD Primary Care Provider Encounter Details Date Type Department Care Team (Late st Contact Info) Description 11/03/2018 Lab Requisition [facility] Care DermPath Lab [address] [facility] [place] [address] Nora Villavicencio MD [address] [facility] [address] [place] [address] Social History Tobacco Use Types Packs/Day Years Used Date Smoking Tobacco: Never Assessed Comments Unknown Sex and Gender Information Value Date Recorded Sex Assigned at Not on file Legal Sex Female 3:15 PM ATHLETIC INSTRUCTOR Gender Identity Not on file Sexual Orientation Not on file documented as of this encounter Plan of Treatment Not on file documented as of this encounter Procedures Procedure Name Priority Date/Time Associated Diagnosis Comments DERMATOPATH TECHNICAL REPORT Routine 10/31/2018 12:00 AM ATHLETIC INSTRUCTOR documented in this encounter Results * DERMATOPATH TECHNICAL REPORT (10/31/2018 12:00 AM ATHLETIC INSTRUCTOR) Case Report Dermatopathology Report Case: [id number] Authorizing Provider: Nora Villavicencio MD Collected: 10/31/2018 12:00 AM Pathologist: Ida Maurer MD Received: 11/03/2018 07:18 AM Specimen: Skin, left forearm 8 10:26 AM ATHLETIC INSTRUCTOR DERMATOPATHOLOGY LABORATORY Clinical History [place] papule, BCC vs LPLK. 8 10:26 AM ATHLETIC INSTRUCTOR DERMATOPATHOLOGY LABORATORY Gross Description Specimen A: Received is one formalin filled container labeled with the patient's name and designated left forearm. The specimen consists of a shave measuring 2e2i8cg. Jar 0. [facility] Dermatopathology Laboratory performed the technical component only. 8 10:26 AM [facility] DERMATOPATHOLOGY LABORATORY Embedded Images 10:26 AM [facility] DERMATOPATHOLOGY LABORATORY DISCLAIMER An external and internal positive and negative controls are appropriate for the histochemical, immunohistochemical and immunofluorescence stain(s) in this case (if any), except where stated explicitly. The performance characteristics of the stain(s) cited in this report were developed and its performance characteristic determined by the Dermatopathology Laboratory at [facility]. These tests need not be, and therefore are not, approved by the [place] Food and Drug Administration. The tests are used for clinical purposes. 10:26 AM [facility] DERMATOPATHOLOGY LABORATORY at [address] [facility] Pathology/Cytolog y TISSUE SPECIMEN FROM SKIN / Unknown 10/31/2018 11/03/2018 7:18 AM ATHLETIC INSTRUCTOR Nora Villavicencio MD LAB - PATHOLOGY/CYTOLOGY ORD ERABLES Final Result DERMATOPATHOLOGY LABORATORY [facility] - Department of Dermatology [address] [place] [address], 5th [place] [address], [facility] [phone] documented in this encounter Visit Diagnoses Not on filedocumented in this encounter Care Teams Pricing Actuary Relationship Specialty Start Date End Date Del Zarate MD [address] [place] [id number] PCP - General 10/31/18 12/06/21 Kika Bermudez MD [address] [place] [address] PCP - General 12/07/21 documented as of this encounter
--- OUTSIDE RECORDS SUMMARY | 2025-10-27 01:06 | XMS_ITS | Clinical Summary ---
Author Organization [facility] Address [address] [place] [address] Care Team Providers Care Safety Coordinator Name Role Phone Kika Bermudez MD Primary Care Provider Source Comments [facility],non-owned Affiliates and Associated Physician Practices is amultiple site organization consisting of ambulatory clinics and hospital sitesin [place], [place], [place] and [place]. This disclosure is being madepursuant to the Care Everywhere program and may not contain all information available regarding this patient. Last updated 18.[facility] Social History Tobacco Use Types Packs/Day Years Used Date Smoking Tobacco: Never Assessed Comments Unknown Sex and Gender Information Value Date Recorded Sex Assigned at Not on file Legal Sex Female 3:15 PM DIRECTOR CARD Gender Identity Not on file Sexual Orientation Not on file Plan of Treatment Health Maintenance Due Date Last Done Comments BONE DENSITY TESTING 1960 COLOGUARD (AGES 45-75) - COL ON CA SCREENING 1960 COLON MONITORING 1960 COLONOSCOPY - COLON CA SCREENING 1960 CT COLONOGRAPHY - COLON CA SCREENING 1960 Colorectal Cancer Screening 1960 FIT - COLON CA SCREENING 1960 FLEX SIG - COLON CA SCREENING 1960 LIPID TESTING 1960 MAMMOGRAM 1960 HEPATITIS C SCREENING 08/04/1976 DTAP/TDAP/TD VACCINES (1 - Tdap) 1977 PNEUMOCOCCAL VACCINE 50+ (1 of 1 - PCV) 2008 ZOSTER VACCINE (1 of 2) 2008 DEPRESSION SCREENING 12/02/2024 COVID-19 VACCINE (1 - 2024-2 6 season) 2025 INFLUENZA VACCINE (#1) 2025 Respiratory Syncytial Virus (RSV) Vaccine Pt: or over 60 yrs (1 - 1-dose 75+ series) 2033 HEPATITIS B VACCINE Aged Out No longe r eligible based on patient's age to complete this topic HIB VACCINE Aged Out No longer eligi ble based on patient's age to complete this topic HPV VACCINE Aged Out No longer eligi ble based on patient's age to complete this topic MENINGOCOCCAL (Group B) VACC INE SHARED DECISION-MAKING Aged Out No longer eligibl e based on patient's age to complete this topic MENINGOCOCCAL GROUPS A/C/Y/W VACCINE Aged Out No longer eligible b ased on patient's age to complete this topic Insurance ANTHEM ANTHEM ANTHEM ANTHEM ANTHEM ANTHEM Care Teams Safety Coordinator Relationship Specialty Start Date End Date Kika Bermudez MD [address] [place] [address] PCP - General 12/07/21
--- OUTSIDE RECORDS SUMMARY | 2025-10-27 01:06 | XMS_ITS | Clinical Summary ---
Author Organization [facility] Address [address] [place] [address] Care Team Providers Care Mechanical Design Drafter Name Role Phone Unavailable Primary Care Provider Unavailabl e Social History Tobacco Use Types Packs/Day Years Used Date Smoking Tobacco: Never Assessed Comments Unknown Sex and Gender Information Value Date Recorded Sex Assigned at Not on file Legal Sex Female 3:14 PM CUT OFF TENDER GLASS Gender Identity Not on file Sexual Orientation Not on file Plan of Treatment Upcoming Encounters Date Type Department Care Team (Late st Contact Info) Description 11/19/2025 1:40 PM CUT OFF TENDER GLASS Office Visit [facility] Medicine [address] [address] Lisa Fletcher, DO [address] [address] Health Maintenance Due Date Last Done Comments Colorectal Cancer Screening Colonoscopy (10 Years) 1960 Hepatitis C 1976 DTaP, Tdap and Td Vaccines ( 1 - Tdap) 1977 Mammogram Screening 1998 Pneumococcal Vaccine: 50+ Ye ars (1 of 1 - PCV) 2008 Zoster Vaccines (1 of 2) 2008 Dexa Scan (General) 2023 COVID-19 Vaccine ( - 2024-2 6 season) 2025 Influenza Adult (#1) 2025 RSV Immunization or 60+ Years (1 - 1-dose 75+ series) 2033 Hepatitis A Vaccines Aged Out No long er eligible based on patient's age to complete this topic Meningococcal B Vaccine Aged Out No l onger eligible based on patient's age to complete this topic Meningococcal Vaccine Aged Out No judy flako eligible based on patient's age to complete this topic RSV Immunizations Under 20 Months Aged Out No longer eligible based on patient's age to complete this topic Insurance [facility]
[2025-10-27 10:21] VITALS: BP 169/88; PULSE 108; RESP 17; TEMP 36.4; O2SAT 98; BMI 36.0
--- NOTE | 2025-10-27 10:24 | SUR.PREOP ---
Patient has Dexcom monitor. Dexcom monitor currently reads 203 for blood sugar reading. Anesthesia notified. No new orders at this time.
[2025-10-27] MEDS: LACTATED RINGERS 1,000 ML 150 ML IV CONT (10:31)
--- NOTE | 2025-10-27 11:05 | WPDANESEPPF ---
Anes - Initial Pre Proc Eval Procedure: Operation Date: 10/27/25 11:30 Proposed Procedures p Screening Colonoscopy - Saurabh Kowalski MD Date/Time: 10/27/25 11:05 Surgeon: Saurabh Kowalski MD Pre Op Diagnosis: Personal history of colon polyps, unspecified Patient Data Age: 65 Gender: F Height: 1.57 m Weight: 89.3 kg Last Vital Signs Temp 97.6 F 10/27/25 10:21 Pulse 108 H 10/27/25 10:21 Resp 17 10/27/25 10:21 BP 169/88 H 10/27/25 10:21 Pulse Ox 98 10/27/25 10:21 O2 Del Method Room Air 10/27/25 10:21 Allergies Allergy/AdvReac Type Severity Reaction Status Date / Time semaglutide (From Ozempic) AdvReac Intermediate vomitting Verified 10/27/25 10:19 Home Medications ?Medication ?Instructions ?Recorded ?Confirmed ?Type omeprazole 40 mg capsule,delayed 40 mg PO DAILY #90 caps 03/26/23 09/02/25 Rx release blood-glucose,ordnance engineering technician,cont #1 ea 12/10/24 09/02/25 Rx (Dexcom G7 Horticultural Specialty Grower) cholecalciferol (vitamin D3) 1,250 1,250 mcg PO WEEKLY #14 tabs 04/14/25 10/27/25 Rx mcg (50,000 unit) tablet lisinopril 20 mg tablet 20 mg PO DAILY #90 tabs 04/14/25 10/27/25 Rx pen needle, diabetic 32 gauge x #200 ea 04/14/25 09/02/25 Rx rosuvastatin 40 mg tablet 40 mg PO DAILY #90 tabs 04/14/25 10/27/25 Rx blood-glucose sensor (Dexcom G7 #9 ea 04/19/25 09/02/25 Rx Sensor device) insulin regular hum U-500 conc 500 See Rx Instructions .Route 05/13/25 10/27/25 Rx unit/mL(3 mL) subcut pen (Humulin .COMPLEX #27 mL R U-500 (Conc) Insulin Kwikpen) oxybutynin chloride 10 mg 10 mg PO .day 05/19/25 10/27/25 History tablet,extended release 24 hr tirzepatide 5 mg/0.5 mL 5 mg (0.5 mL) subcut WEEKLY #6 mL 07/19/25 09/02/25 Rx subcutaneous pen injector (Mounjaro) bupropion HCl 300 mg 24 hr tablet, 300 mg PO QAM 09/02/25 10/27/25 History extended release (Wellbutrin XL) amlodipine 10 mg tablet (Norvasc) 10 mg PO DAILY #90 tabs 10/11/25 10/27/25 Rx Patient hx anesthesia problems: none Family hx anesthesia problems: none Results Review: All pre-operative results and documents have been reviewed as part of the pre-operative evaluation. [facility] Past Medical History Medical History Hypersomnolence Body mass index (BMI) 35 or more (02/25/18) Stage 2 acute kidney injury Fatty liver Post-menopausal Type 2 diabetes mellitus with hyperglycemia, with long-term current use of insulin Family history of hemochromatosis Lactic acidosis Leukocytosis DKA (diabetic ketoacidosis) Hyperlipidemia Hypokalemia History of acute renal failure 2014. Required temporary dialysis BRAEDEN (obstructive sleep apnea) Untreated Diabetic peripheral neuropathy associated with type 2 diabetes mellitus GERD without esophagitis IDDM (insulin dependent diabetes mellitus) Essential (primary) hypertension Onset 07/03/17 Osteopenia Onset 02/25/19 History of hypertension History of gastroesophageal reflux (GERD) Hx of cyst of breast Benign Hx of osteoporosis 01/2012 Hx of diabetic neuropathy 05/2015 Surgical History Surgical History History of tubal ligation 1985 History of tonsillectomy (~1963) Hx of removal of cyst (~1997) breast Family History Family History Mother Hypertension Family history of hemochromatosis Father Hypertension Family history of gastrointestinal disorder Family history of diabetes mellitus in first degree relative Sibling Family history of malignant neoplasm of cervix Social History Social History Social History: Ms. Nguyễn lives at home with her . She is independent in her daily activities. She works for [employer] and today was her last day of she is retiring. Her PCP is Dr. Bermudez. She designates her , Nikhil, as her surrogate decision maker and she would like to be a full code. Code status full code Smoking packs per day: 0.5 Smoking cigarettes per day: 10.0 Years smoked: 7 Smoking pack-years: 3.50 Smoking status: Former smoker Tobacco type: cigarettes Smoking end date: 12/02/81 Alcohol intake: never Substance use: never Substance use type: marijuana Other substance usage details: edible marijuana Lack of Transportation: No Lack of Food: Never True Current Housing: I Have Housing Concerned About Future Housing: No Difficulty Paying Gas/Electric Bills: No Difficulty Paying for Meds: No Currently Unemployed: No Education: Associate Degree Difficulty w/ Childcare or Family Care: No Living arrangements: with family Occupation/Education: retired Gender identity (if verbalized by the patient): Female Sexual Orientation (if Verbalized by the Patient): Straight or Heterosexual Spiritual care concerns: No Agree to blood products: Yes Anes - Eval Final PreProcedure Day of Procedure 10/27/25 11:05 Patient weight: obese Lungs: normal air movement Airway: Mallampati scale class III Neurological: alert and oriented Last oral intake: >/= 8 hours ASA classification: III Emergent: no Anesthetic plan: proceed Anesthesia type and monitoring: general GIVS and standard monitoring Results Review: All pre-operative results and documents have been reviewed as part of the pre-operative evaluation. DM fsbs 203, BRAEDEN not on CPAP, HTN, hyperlipidemia, pt can walk 1-2 fos, no cp, mild sob. Informed Consent: The patient's anesthetic plan and its attendant risks and benefits were discussed with the patient/family/POA. Questions were solicited and answers provided to the satisfaction of the patient/family/POA.
--- NOTE | 2025-10-27 11:32 | P.HP_ITS ---
H&P: HPI History of Present Illness Date/Time: 10/27/25 11:32 Chief Complaint: History of colon polyps Narrative: The patient has a history of colonic polyps, the last colonoscopy was 3 years ago. Review of Systems Review of Systems: All systems reviewed & are unremarkable except as noted in HPI and below [facility] Past Medical History Medical History Hypersomnolence Body mass index (BMI) 35 or more (02/25/18) Stage 2 acute kidney injury Fatty liver Post-menopausal Type 2 diabetes mellitus with hyperglycemia, with long-term current use of insulin Family history of hemochromatosis Lactic acidosis Leukocytosis DKA (diabetic ketoacidosis) Hyperlipidemia Hypokalemia History of acute renal failure 2014. Required temporary dialysis BRAEDEN (obstructive sleep apnea) Untreated Diabetic peripheral neuropathy associated with type 2 diabetes mellitus GERD without esophagitis IDDM (insulin dependent diabetes mellitus) Essential (primary) hypertension Onset 07/03/17 Osteopenia Onset 02/25/19 History of hypertension History of gastroesophageal reflux (GERD) Hx of cyst of breast Benign Hx of osteoporosis 01/2012 Hx of diabetic neuropathy 05/2015 Surgical History Surgical History History of tubal ligation 1985 History of tonsillectomy (~1963) Hx of removal of cyst (~1997) breast Family History Family History Mother Hypertension Family history of hemochromatosis Father Hypertension Family history of gastrointestinal disorder Family history of diabetes mellitus in first degree relative Sibling Family history of malignant neoplasm of cervix Social History Social History Social History: Ms. Nguyễn lives at home with her . She is independent in her daily activities. She works for [employer] and today was her last day of she is retiring. Her PCP is Dr. Bermudez. She designates her , Nikhil, as her surrogate decision maker and she would like to be a full code. Code status full code Smoking packs per day: 0.5 Smoking cigarettes per day: 10.0 Years smoked: 7 Smoking pack-years: 3.50 Smoking status: Former smoker Tobacco type: cigarettes Smoking end date: 12/02/81 Alcohol intake: never Substance use: never Substance use type: marijuana Other substance usage details: edible marijuana Lack of Transportation: No Lack of Food: Never True Current Housing: I Have Housing Concerned About Future Housing: No Difficulty Paying Gas/Electric Bills: No Difficulty Paying for Meds: No Currently Unemployed: No Education: Associate Degree Difficulty w/ Childcare or Family Care: No Living arrangements: with family Occupation/Education: retired Gender identity (if verbalized by the patient): Female Sexual Orientation (if Verbalized by the Patient): Straight or Heterosexual Spiritual care concerns: No Agree to blood products: Yes Meds Home Medications and Allergies Home Medications ?Medication ?Instructions ?Recorded ?Confirmed ?Type omeprazole 40 mg capsule,delayed 40 mg PO DAILY #90 ca ps 03/26/23 09/02/25 Rx release blood-glucose,parts department supervisor,cont #1 ea 12/10/24 09/02/25 Rx (Dexcom G7 Fish House Worker) cholecalciferol (vitamin D3) 1,250 1,250 mcg PO WEEKLY #14 tabs 04/14/25 10/27/25 Rx mcg (50,000 unit) tablet lisinopril 20 mg tablet 20 mg PO DAILY #90 tabs 04/0110/27/25 Rx pen needle, diabetic 32 gauge x #200 ea 04/14/2509/02 Rx rosuvastatin 40 mg tablet 40 mg PO DAILY #90 tabs 04/0110/27/25 Rx blood-glucose sensor (Dexcom G7 #9 ea 04/19/25 5 Rx Sensor device) insulin regular hum U-500 conc 500 See Rx Instructions .Route 05/13/25 10/27/25 Rx unit/mL(3 mL) subcut pen (Humulin .COMPLEX #27 mL R U-500 (Conc) Insulin Kwikpen) oxybutynin chloride 10 mg 10 mg PO .day 05/19/2510/27 History tablet,extended release 24 hr tirzepatide 5 mg/0.5 mL 5 mg (0.5 mL) subcut WEEKLY #6 mL 07/19/25 09/02/25 Rx subcutaneous pen injector (Teressa) bupropion HCl 300 mg 24 hr tablet, 300 mg PO QAM 09/0210/27/25 History extended release (Wellbutrin XL) amlodipine 10 mg tablet (Norvasc) 10 mg PO DAILY #90 t abs 10/11/25 10/27/25 Rx Allergies Allergy/AdvReac Type Severity Reaction Status Date / Time semaglutide (From Ozempic) AdvReac Intermediate vomitting Verified 10/27/25 10:19 Vital Signs Vital Signs - 24 hr 10/27/25 10:21 Temperature 97.6 F Pulse Rate 108 H Respiratory Rate 17 Blood Pressure 169/88 H Pulse Oximetry 98 Oxygen Delivery Room Air Exam Const: General: cooperative and healthy appearing Resp: Effort & Inspection: normal respiratory effort and able to speak in complete sentences Auscultation: clear to auscultation bilaterally Cardio: Rate: regular rate Rhythm: regular rhythm GI: Inspection: normal to inspection GI Palp: No No hepatosplenomegaly present Auscultation: normal bowel sounds Rectal Exam: deferred Skin: General skin exam: normal color Psych: Appearance: grossly normal Mental Status: mental status grossly normal Assessment and Plan Assessment and plan (1) Positive colorectal cancer screening using Cologuard test: Code(s): R19.5 - Other fecal abnormalities Status: Acute Assessment and Plan: The patient is deemed a good candidate for the procedure. Consent signed. Will proceed.
--- NOTE | 2025-10-27 11:52 | S_PTH ---
PATIENT: Neva Nguyễn LOC: [facility] U#:[id number] AGE/SX: 65/F ROOM: RE10/27/[address]: Saurabh Kowalski MD : 1960 BED: DIS: 10/27/2025 SPEC #: [id number] RECD: 10/27/25 12:58 STATUS: DALE REQ #: [id number] GENE: 10/27/25 11:[address]: Saurabh Kowalski DEPT: [facility] Surgical RECD BY: Cathy Mukherjee ENTERED: 10/27/25 12:59 SP TYPE: Surgical OTHR DR: Adelia Kaur, PA Tissues: A - Colon Polypectomy B - Colon Polypectomy Procedures: Hematoxylin and Eosin Stain Gross and Microscopic Level 4
[2025-10-27 11:55] VITALS: BP 101/59; PULSE 103; RESP 20; O2SAT 99
[2025-10-27 12:05] VITALS: BP 119/64; PULSE 97; RESP 20; O2SAT 100
[2025-10-27 12:15] VITALS: BP 143/86; PULSE 91; RESP 19; O2SAT 100
== END 2025-10-27 12:27 | disposition home or self-care (01) ==
PROVIDERS: PCP Physician Assistant; Referring Provider Internal Medicine Gastroenterology; Visit Provider Internal Medicine Gastroenterology
PROC: 0DJD8ZZ Inspection of Lower Intestinal Tract, Via Natural or Artificial Opening Endoscopic (ICD-10-PCS; CPT 45378; principal; 2025-10-27 11:30)
DX: Z12.11 Encounter for screening for malignant neoplasm of colon (principal); D12.2 Benign neoplasm of ascending colon; D12.3 Benign neoplasm of transverse colon; K63.5 Polyp of colon; K57.30 Diverticulosis of large intestine without perforation or abscess without bleeding; K64.8 Other hemorrhoids; R19.5 Other fecal abnormalities; F12.90 Cannabis use, unspecified, uncomplicated; Z87.891 Personal history of nicotine dependence; E66.9 Obesity, unspecified; Z68.36 Body mass index [BMI] 36.0-36.9, adult
CPT/HCPCS: 45385; 88305; J2003; J2704; J7120